=== PATIENT | female | born 1980 | race Caucasian/White ===

== ENCOUNTER 2021-01-01 04:16 | Emergency (ER) | payer SELFPAY ==
[2021-01-01 04:31] VITALS: BP 156/89; PULSE 70; RESP 16; TEMP 36.7; O2SAT 96; BMI 35.1
--- NOTE | 2021-01-01 04:38 | XRR_ITS ---
PROCEDURE INFORMATION: Exam: XR Right Forearm Exam date and time: 01/01/2021 4:38 AM Age: 40 years old Clinical indication: Lower or forearm; Right; Patient HX: C/O pain to distal forearm. Mild swelling. Patient states she is unsure if she injured it or not. ; Additional info: Injury TECHNIQUE: Imaging protocol: XR Right forearm. Views: 2 views. COMPARISON: No relevant prior studies available. FINDINGS: Bones/joints: No acute fracture or dislocation. Soft tissues: Normal. XR/XR forearm RT 2V [id number] IMPRESSION: No acute fracture or dislocation.
--- NOTE | 2021-01-01 04:43 | W.ED.EXTPRO ---
HPI - Extremity Problem General: Chief complaint: Extremity Injury, Upper Stated complaint: Injury Rt arm Time Seen by Provider: 01/01/21 04:17 Source: patient Mode of arrival: ambulatory Limitations: no limitations History of Present Illness: HPI Narrative: 40-year-old female states she been having some right wrist pain over the last day. States she has tenderness and swelling over the right wrist and distal forearm. She states that she is unsure if she actually injured it but does have some possible deformity. She states that pain is improved with rest and worse with palpation. Associated symptoms: Deny chest pain, fever(s) or rash Review of Systems Const: Denies: fever(s), chills, body aches or change in appetite Eyes: Denies: blurry vision or eye discomfort ENMT: Denies: throat pain or dental pain Card: Denies: chest pain Resp: Denies: dyspnea GI: Denies: abdominal pain, nausea, vomiting or diarrhea : Denies: dysuria Musc: Reports: extremity pain Skin/Breast: Denies: rash Neuro: Denies: headache(s) Psych: Denies: depression Timmy/Lymph: Denies: easy bruising All/Imm: Denies: urticaria Physical Exam Const: COMMON NORMALS: no acute distress, patient oriented x3 and healthy appearing HENMT: COMMON NORMALS: normocephalic and atraumatic HEAD & SCALP: normocephalic and atraumatic Eye: COMMON NORMALS: Equal, round and reactive pupils present and EOMs intact bilaterally PUPIL: Yes Equal, round and reactive pupils present Neck/C-Spine: COMMON NORMALS: full ROM and supple Chest: COMMONS NORMALS: normal inspection of the chest and normal palpation of entire chest wall Resp: COMMON NORMALS: normal respiratory effort, No retractions, No use of accessory muscles and clear to auscultation bilaterally AUSCULTATION: clear to auscultation bilaterally Cardio: COMMON NORMALS: regular rate, regular rhythm and No murmurs present (Cardio) RATE: regular rate RHYTHM: regular rhythm GI: COMMON NORMALS: Normal to inspection, nondistended, normoactive bowel sounds present, Soft to palpation, non-tender and no masses PALPATION: Yes Soft to palpation Extremity: COMMON NORMALS: full ROM NARRATIVE EXTREMITY EXAM: tenderness over right distal forearm Neuro: COMMON NORMALS: patient oriented x3, moves all extremities and no focal motor deficits Psych: COMMON NORMALS: mental status grossly normal, Normal thought process present and cooperative THOUGHT PROCESS: Normal thought process present Skin: COMMON NORMALS: no rashes or lesions noted and no wounds GENERAL SKIN EXAM: no rashes or lesions noted Course Vital Signs: Vital signs: Vital Signs Temperature 98.1 F 01/01/21 04:31 Pulse Rate 70 01/01/21 04:31 Respiratory Rate 16 01/01/21 04:31 Blood Pressure 156/89 01/01/21 04:31 Pulse Oximetry 96 01/01/21 04:31 MDM - Extremity (Nontraumatic) MDM Narrative: Medical decision making narrative: Patient presents here with pain over her right forearm. She does have some slight swelling no signs of abscess or cellulitis. She has no signs of septic arthritis. Patient's x-ray here shows no fracture. She is to ice it along with Erik wrap. She is stable for discharge and is to follow-up PCP and return if worsening. Imaging Data^: xr forearm rt: Attestation: I personally reviewed and interpreted this imaging study as follows: My impression: no acute abnormality Discharge Plan Discharge Patient Disposition: Home Clinical Impression: Right wrist pain Condition: Stable Discharge Orders: Discharge ED (Routine); Ordered 01/01/21 Ordered By: Soumya Ma Discharge Diet: Advance as tolerated Discharge Activity: Resume usual activity Patient Instructions: Arthralgia (ED) Coding Level of Care Code ED Aircraft Structural Design Engineer for Portia Vera Exam Comprehensive
[2021-01-01 04:56] VITALS: BP 145/90; PULSE 69; RESP 15; O2SAT 99
[2021-01-01 05:05] VITALS: BP 145/90; PULSE 69; RESP 15; O2SAT 99
== END 2021-01-01 05:00 | disposition home or self-care (01) ==
PROVIDERS: Emergency Provider Emergency Medicine
DX: M25.531 Pain in right wrist (principal)
CPT/HCPCS: 73090; 99282

== ENCOUNTER 2021-11-25 14:17 | Inpatient (IN) | payer MEDICAID, SELFPAY ==
[2021-11-25 14:18] VITALS: BP 135/82; PULSE 102; RESP 18; TEMP 37.4; O2SAT 97; BMI 29.5
[2021-11-25 14:47] VITALS: BP 135/82; PULSE 102; RESP 18; TEMP 37.4; O2SAT 97
--- NOTE | 2021-11-25 14:54 | USCV_ITS ---
Lou Ponce Age: 41 Gender: F : 1980 Exam Date: 11/25/2021 15:08 Ordering Phys: Lydia Hand Technologist: QUINTIN [place]am [place] [facility] [place]ication: RLE PAIN, SWELLING, AND DISCOLORATION HISTORY: Lower extremity swelling. Lower extremity pain. Lower extremity edema. PROCEDURES: Venous duplex imaging was performed in only the right lower extremity. The following venous structures were evaluated: common femoral vein, profunda vein, proximal portion of the greater saphenous vein, superficial femoral vein, and the popliteal vein. In addition, the posterior tibial and peroneal trunk were evaluated. Serial compression, augmentation maneuvers, and spectral Doppler flow evaluation were performed. FINDINGS: Examination was technically limited due to body habitus. No evidence of DVT seen in any vessel visualized at this time. Edema seen in Right lower leg CONCLUSIONS No evidence of right lower extremity DVT. Zheng Iniguez MD (Electronically Signed) Final Date: 25 November 2021 16:25 S
--- NOTE | 2021-11-25 14:55 | ED_ITS ---
Documented by User: DENTON Kohler 11/25/21 16:39 HPI - Extremity Problem General: Chief complaint: Skin/Abscess/Foreign Body Stated complaint: LEG PAIN, VOMITING, CHILLS Time Seen by Provider: 11/25/21 14:34 Source: patient Mode of arrival: EMS Limitations: no limitations History of Present Illness: Patient is a 41-year-old female presents to ED today via EMS for evaluation of right lower leg redness, swelling, and pain. Patient herself is an extremely poor historian. During my examination she appears to be drowsy-tells me EMS gave her something for nausea that made her drowsy. Patient tells me that symptoms started yesterday. She does tell me she has a history of cellulitis to that leg. She does tell me she sustained some type of cut or laceration to the anterior aspect of her ankle but cannot tell me how or when. She does not complain of fevers or body aches. No chest pain, shortness of breath, difficulty breathing. MD Complaint: extremity pain and extremity swelling Onset (ago): day(s) (yesterday) Pain Consistency: constant Location: right and lower extremity Associated symptoms: Deny chest pain or fever(s) Review of Systems Const: Denies: fever(s), chills, body aches, fatigue or malaise Card: Denies: chest pain Resp: Denies: dyspnea GI: Denies: abdominal pain Musc: Reports: extremity pain and extremity swelling; Denies: neck pain or back pain Skin/Breast: Reports: other (redness/warmth to R LE) Neuro: Denies: headache(s), numbness in extremities, weakness in extremities or sensory changes FOR[facility]LY [facility], [facility] ED PFSH: Medical History Cellulitis Years back Smoking addiction Surgical History H/O: hysterectomy Family History Other No significant family history Social History Smoking and tobacco status: current some day smoker Alcohol intake: former Year of sobriety/quit date alcohol: 2021 Former alcohol use details: Reports no EtOH since September. Heavy prior to that Lives independently: Yes Household members: significant other Marital status: Physical Exam Const: COMMON NORMALS: no acute distress, average body habitus, patient oriented x3 and alert GENERAL APPEARANCE: cooperative ORIENTATION/CONSCIOUSNESS: Yes awake, Yes oriented to person, Yes oriented to place and Yes oriented to time OTHER: appears drowsy HENMT: COMMON NORMALS: normocephalic and atraumatic HEAD & SCALP: normal to inspection, normocephalic and atraumatic Resp: COMMON NORMALS: normal respiratory effort and clear to auscultation bilaterally AUSCULTATION: clear to auscultation bilaterally Cardio: COMMON NORMALS: regular rhythm RATE: tachycardic (mild) RHYTHM: regular rhythm Extremity: COMMON NORMALS: capillary refill normal GENERAL: Yes normal exam except as noted RIGHT LOWER EXTREMITY: Yes lower leg, Yes foot & digits and Yes foot & digits OTHER: pt has significant swelling to her R LE when compared to L; she has sharply demarcated erythema extending just distal to her knee all the way down extremity into ankle/foot; she has a small linear laceration to anterior R ankle that most likely is source of infection; NV intact; extremity is very warm to the touch Neuro: LAURA COMA SCALE: document GCS findings Sumner coma scale eye opening: Spontaneous Sumner coma scale verbal response: Orientated Laura coma scale motor response: Obey commands Sumner coma scale total score: 15 COMMON NORMALS: patient oriented x3, moves all extremities, no focal motor deficits and no sensory deficits noted SENSORIUM/ORIENTATION: Yes alert, Yes oriented to person, Yes oriented to place and Yes oriented to time Skin: NARRATIVE SKIN EXAM: see extremity assessment above Course Consultations: Consultation #1: Dr. Esquivel-admit to OBS Vital Signs: Vital signs: Vital Signs Temperature 98.6 F 11/27/21 11:56 Pulse Rate 93 11/27/21 11:56 Respiratory Rate 17 11/27/21 11:56 Blood Pressure 127/75 11/27/21 11:56 Pulse Oximetry 96 11/27/21 11:56 Oxygen Delivery Me thod 11/27/21 11:56 MDM - Extremity (Nontraumatic) Medical Decision Making Patient has significant swelling to her right lower leg with accompanying cellulitis. Symptoms are rapidly progressing as she states they first started yesterday but then later tells me she first noticed it today. I do somewhat question the accuracy of patient's history. She arrived mildly tachycardic at 102 with a low-grade fever of 99.3. These have resolved during repeat vital assessment. White count at this point is 12.3. She surprisingly has a normal lactate and normal inflammatory markers. Tox screen is negative. Patient states she has no follow-up outpatient and I worry regarding compliance if she were to go home. I think just given the rapid progression of symptoms she would benefit from hospitalization and IV antibiotics. Agree with Dr. Gonzalez who agrees. I spoke to Dr. Esquivel who will admit to obs. Lab Data : 11/27/21 04:49 11/27/21 04:49 Laboratory Results WBC 12.3 10^3/uL (4.0-10.0) H 11/25/21 14:01 RBC 4.26 10^6/uL (4.1-5.3) 11/25/21 14:01 Hgb 14.1 g/dL (11.5-15.3) 11/25/21 14:01 Hct 42.0 % (37.0-47.0) 11/25/21 14:01 MCV 98.6 fl (81-99) 11/25/21 14:01 MCH 33.1 pg (28.0-34.0) 11/25/21 14:01 MCHC 33.6 g/dL (30.0-36.0) 11/25/21 14:01 RDW 12.9 % (12.1-15.1) 11/25/21 14:01 Plt Count 261 10^3/cmm (130-400) 11/25/21 14:01 MPV 9.6 fL (7.4-10.4) 11/25/21 14:01 Neut % (Auto) 94.1 % 11/25/21 14:01 Lymph % (Auto) 1.9 % 11/25/21 14:01 Glades % (Auto) 3.2 % 11/25/21 14:01 Eos % (Auto) 0.1 % 11/25/21 14:01 Baso % (Auto) 0.2 % 11/25/21 14:01 Neut # (Auto) 11.62 10^3/uL (1.8-7.7) H 11/25/21 14:01 Lymph # (Auto) 0.2 10^3/uL (0.8-4.8) L 11/25/21 14:01 Glades # (Auto) 0.4 10^3/uL (0.2-0.9) 11/25/21 14:01 Eos # (Auto) 0.0 10^3/uL (0.0-0.8) 11/25/21 14:01 Baso # (Auto) 0.0 10^3/uL (0.0-0.1) 11/25/21 14:01 Nucleated RBC % (auto) 0 % 11/25/21 14:01 Nucleated RBCs # 0.0 /100WBC 11/25/21 14:01 ESR 6 mm/hr (0-15) 11/25/21 14:01 Sodium 139 mmol/L (136-145) 11/25/21 14:01 Potassium 4.0 mmol/L (3.5-5.1) 11/25/21 14:01 Chloride 104 mmol/L (98-107) 11/25/21 14:01 Carbon Dioxide 25 mmol/L (22-29) 11/25/21 14:01 Anion Gap 14.0 (5-19) 11/25/21 14:01 BUN 9 mg/dL (6-20) 11/25/21 14:01 Creatinine 0.7 mg/dL (0.5-0.9) 11/25/21 14:01 GFR Calculation 91.3 mL/min (90-130) 11/25/21 14:01 Glucose 132 mg/dL (65-115) H 11/25/21 14:01 Calculated Osmolality 289 mOsm/kg (285-295) 11/25/21 14:01 Lactic Acid 1.9 mmol/L (0.5-2.2) 11/25/21 14:08 Calcium 8.9 mg/dL (8.5-10.5) 11/25/21 14:01 Total Bilirubin 0.6 mg/dL (0.15-1.2) 11/25/21 14:01 AST 9 U/L (0-32) 11/25/21 14:01 ALT 12 U/L (0-33) 11/25/21 14:01 Alkaline Phosphatase 52 IU/L (35-105) 11/25/21 14:01 C-Reactive Protein 3.8 mg/L (0.0-4.9) 11/25/21 14:01 Total Protein 6.7 g/dL (6.6-8.7) 11/25/21 14:01 Albumin 3.9 g/dL (3.5-5.2) 11/25/21 14:01 Globulin 2.8 g/dL (1.3-4.6) 11/25/21 14:01 Urine Opiates Screen Negative ng/mL (Negative) 11/25/21 14:32 Ur Barbiturates Screen Negative ng/mL (Negative) 11/25/21 14:32 Ur Phencyclidine Scrn Negative ng/mL (Negative) 11/25/21 14:32 Ur Amphetamines Screen Negative ng/mL (Negative) 11/25/21 14:32 U Benzodiazepines Scrn Negative ng/mL (Negative) 11/25/21 14:32 Urine Cocaine Screen Negative ng/mL (Negative) 11/25/21 14:32 U Marijuana (THC) Screen Negative ng/mL (Negative) 11/25/21 14:32 Discharge Plan Discharge Patient Disposition: Placed in Observation Admit Provider: Gaurang Esquivel Clinical Impression: Cellulitis of right leg Coding Level of Care Code ED Analytics Developer for Chg Fwd Exam Detailed Documented by User: Ty Gonzalez MD 12/07/21 23:07 HPI - Extremity Problem General: Chief complaint: Skin/Abscess/Foreign Body Stated complaint: LEG PAIN, VOMITING, CHILLS Time Seen by Provider: 11/25/21 14:34 PFSH ED PFSH: Medical History Cellulitis Years back Smoking addiction Surgical History H/O: hysterectomy Family History Other No significant family history Social History Smoking and tobacco status: current some day smoker Alcohol intake: former Year of sobriety/quit date alcohol: 2022 Former alcohol use details: Reports no EtOH since September. Heavy prior to that Lives independently: Yes Household members: significant other Marital status: Physical Exam Neuro: LAURA COMA SCALE: document GCS findings Sumner coma scale total score: 15 Course Vital Signs: Vital signs: Vital Signs Temperature 98.6 F 11/27/21 11:56 Pulse Rate 93 11/27/21 11:56 Respiratory Rate 17 11/27/21 11:56 Blood Pressure 127/75 11/27/21 11:56 Pulse Oximetry 96 11/27/21 11:56 Oxygen Delivery Me thod 11/27/21 11:56 MDM - Extremity (Nontraumatic) Medical Decision Making Patient has significant swelling to her right lower leg with accompanying cellulitis. Symptoms are rapidly progressing as she states they first started yesterday but then later tells me she first noticed it today. I do somewhat question the accuracy of patient's history. She arrived mildly tachycardic at 102 with a low-grade fever of 99.3. These have resolved during repeat vital assessment. White count at this point is 12.3. She surprisingly has a normal lactate and normal inflammatory markers. Tox screen is negative. Patient states she has no follow-up outpatient and I worry regarding compliance if she were to go home. I think just given the rapid progression of symptoms she would benefit from hospitalization and IV antibiotics. Agree with Dr. Gonzalez who agrees. I spoke to Dr. Esquivel who will admit to obs. I discussed this case with DENTON Kohler. I personally saw and evaluated the patient. I reperformed auguste portions of E/M. I reviewed documentation, labs, imaging. Ty Gonzalez MD Emergency Medicine Lab Data : 11/27/21 04:49 11/27/21 04:49 Laboratory Results WBC 12.3 10^3/uL (4.0-10.0) H 11/25/21 14:01 RBC 4.26 10^6/uL (4.1-5.3) 11/25/21 14:01 Hgb 14.1 g/dL (11.5-15.3) 11/25/21 14:01 Hct 42.0 % (37.0-47.0) 11/25/21 14:01 MCV 98.6 fl (81-99) 11/25/21 14:01 MCH 33.1 pg (28.0-34.0) 11/25/21 14:01 MCHC 33.6 g/dL (30.0-36.0) 11/25/21 14:01 RDW 12.9 % (12.1-15.1) 11/25/21 14:01 Plt Count 261 10^3/cmm (130-400) 11/25/21 14:01 MPV 9.6 fL (7.4-10.4) 11/25/21 14:01 Neut % (Auto) 94.1 % 11/25/21 14:01 Lymph % (Auto) 1.9 % 11/25/21 14:01 Glades % (Auto) 3.2 % 11/25/21 14:01 Eos % (Auto) 0.1 % 11/25/21 14:01 Baso % (Auto) 0.2 % 11/25/21 14:01 Neut # (Auto) 11.62 10^3/uL (1.8-7.7) H 11/25/21 14:01 Lymph # (Auto) 0.2 10^3/uL (0.8-4.8) L 11/25/21 14:01 Glades # (Auto) 0.4 10^3/uL (0.2-0.9) 11/25/21 14:01 Eos # (Auto) 0.0 10^3/uL (0.0-0.8) 11/25/21 14:01 Baso # (Auto) 0.0 10^3/uL (0.0-0.1) 11/25/21 14:01 Nucleated RBC % (auto) 0 % 11/25/21 14:01 Nucleated RBCs # 0.0 /100WBC 11/25/21 14:01 ESR 6 mm/hr (0-15) 11/25/21 14:01 Sodium 139 mmol/L (136-145) 11/25/21 14:01 Potassium 4.0 mmol/L (3.5-5.1) 11/25/21 14:01 Chloride 104 mmol/L (98-107) 11/25/21 14:01 Carbon Dioxide 25 mmol/L (22-29) 11/25/21 14:01 Anion Gap 14.0 (5-19) 11/25/21 14:01 BUN 9 mg/dL (6-20) 11/25/21 14:01 Creatinine 0.7 mg/dL (0.5-0.9) 11/25/21 14:01 GFR Calculation 91.3 mL/min (90-130) 11/25/21 14:01 Glucose 132 mg/dL (65-115) H 11/25/21 14:01 Calculated Osmolality 289 mOsm/kg (285-295) 11/25/21 14:01 Lactic Acid 1.9 mmol/L (0.5-2.2) 11/25/21 14:08 Calcium 8.9 mg/dL (8.5-10.5) 11/25/21 14:01 Total Bilirubin 0.6 mg/dL (0.15-1.2) 11/25/21 14:01 AST 9 U/L (0-32) 11/25/21 14:01 ALT 12 U/L (0-33) 11/25/21 14:01 Alkaline Phosphatase 52 IU/L (35-105) 11/25/21 14:01 C-Reactive Protein 3.8 mg/L (0.0-4.9) 11/25/21 14:01 Total Protein 6.7 g/dL (6.6-8.7) 11/25/21 14:01 Albumin 3.9 g/dL (3.5-5.2) 11/25/21 14:01 Globulin 2.8 g/dL (1.3-4.6) 11/25/21 14:01 Urine Opiates Screen Negative ng/mL (Negative) 11/25/21 14:32 Ur Barbiturates Screen Negative ng/mL (Negative) 11/25/21 14:32 Ur Phencyclidine Scrn Negative ng/mL (Negative) 11/25/21 14:32 Ur Amphetamines Screen Negative ng/mL (Negative) 11/25/21 14:32 U Benzodiazepines Scrn Negative ng/mL (Negative) 11/25/21 14:32 Urine Cocaine Screen Negative ng/mL (Negative) 11/25/21 14:32 U Marijuana (THC) Screen Negative ng/mL (Negative) 11/25/21 14:32 Discharge Plan Discharge Patient Disposition: Placed in Observation Admit Provider: Halytskyy,Gaurang Clinical Impression: Cellulitis of right leg Coding Level of Care Code ED Analytics Developer for Chg Fwd Exam Detailed
[2021-11-25 15:04] VITALS: BP 135/82; PULSE 102; RESP 18; TEMP 37.4; O2SAT 97
[2021-11-25 15:30] LABS: Erythrocyte Sedimentation Rate 6 mm/hr (0-15)
[2021-11-25 15:33] LABS: Basophils % 0.2 %; Eosinophils % 0.1 %; Hemoglobin 14.1 g/dL (11.5-15.3); Lymphocytes # 0.2 10^3/uL (0.8-4.8); Lymphocytes % 1.9 %; Mean Corpuscular HGB Conc 33.6 g/dL (30.0-36.0); Mean Corpuscular Hemoglobin 33.1 pg (28.0-34.0); Mean Corpuscular Volume 98.6 fl (81-99); Mean Platelet Volume 9.6 fL (7.4-10.4); Monocytes # 0.4 10^3/uL (0.2-0.9); Monocytes % 3.2 %; Neutrophils # 11.62 10^3/uL (1.8-7.7); Neutrophils % 94.1 %; Nucleated Red Blood Cells % 0 %; Platelet Count 261 10^3/cmm (130-400); Red Blood Count 4.26 10^6/uL (4.1-5.3); Red Cell Distribution Width 12.9 % (12.1-15.1); White Blood Count 12.3 10^3/uL (4.0-10.0)
[2021-11-25 15:45] LABS: Lactic Sepsis W/Reflex 1.9 mmol/L (0.5-2.2)
[2021-11-25] MEDS: vancomycin 1,000 MG in sodium chloride 0.9% 250 ML 250 MG IV (15:46)
[2021-11-25 15:49] LABS: Alanine Aminotransferase 12 U/L (0-33); Albumin Level 3.9 g/dL (3.5-5.2); Alkaline Phosphatase 52 IU/L (35-105); Aspartate Amino Transferase 9 U/L (0-32); Blood Urea Nitrogen 9 mg/dL (6-20); C Reactive Protein 3.8 mg/L (0.0-4.9); Calcium 8.9 mg/dL (8.5-10.5); Carbon Dioxide 25 mmol/L (22-29); Chloride 104 mmol/L (98-107); Globulin 2.8 g/dL (1.3-4.6); Glomerular Filtration Rate 91.3 mL/min (90-130); Glucose 132 mg/dL (65-115); Osmolality Calculated 289 mOsm/kg (285-295); Sodium 139 mmol/L (136-145); Total Bilirubin 0.6 mg/dL (0.15-1.2); Total Protein 6.7 g/dL (6.6-8.7)
[2021-11-25 16:23] VITALS: BP 113/77; PULSE 88; RESP 16; TEMP 36.9; O2SAT 95
[2021-11-25 16:27] LABS: Amphetamines Screen Urine Negative (Negative); Barbiturates Screen Urine Negative (Negative); Benzodiazepines Screen Urine Negative (Negative); Cocaine Screen Urine Negative (Negative); Opiate Screen Urine Negative (Negative); PCP Screen Urine Negative (Negative); THC Screen Urine Negative (Negative)
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
[2021-11-25] MEDS: clindamycin 600 MG/50 ML PREMIX 100 MG IV (19:49)
[2021-11-25 19:56] VITALS: BP 161/89; PULSE 96; RESP 16; TEMP 36.9; O2SAT 100
[2021-11-25 21:39] VITALS: BMI 29.5
--- NOTE | 2021-11-25 21:58 | PC.PHAR ---
Vancomycin dosage is continued at 1000mg IVPB every 8 hours to produce a predicted trough level of14.66 (population based pharmacokinetic analysis). A trough level has been ordered from the lab to be obtained before the fourth dose to confirm and adjust if needed.
[2021-11-25] MEDS: heparin 5,000 unit/mL INJ 1 mL 5000 UNIT SUBCUT (22:33)
[2021-11-25] MEDS: pantoprazole 40 mg SDV IVP (22:33)
[2021-11-25] MEDS: lactated ringers 1,000 ML 100 ML IV (22:38)
[2021-11-26] VITALS (8 sets, daily range): BP systolic 102–118; BP diastolic 63–76; PULSE 88–108; RESP 14–19; TEMP 37.2–39.5; O2SAT 95–99
[2021-11-26] MEDS: vancomycin 1,000 MG in sodium chloride 0.9% 250 ML 250 MG IV ×3 (00:27→16:54)
[2021-11-26] MEDS: ondansetron 2 mg/ML SDV 2 mL 4 MG IVP (00:27)
[2021-11-26] MEDS: acetaminophen 325 mg Tablet 650 MG PO (01:14)
[2021-11-26 02:52] LABS: Basophils % 0.1 %; Hematocrit 36.3 % (37.0-47.0); Lymphocytes # 0.2 10^3/uL (0.8-4.8); Lymphocytes % 1.4 %; Mean Corpuscular HGB Conc 33.1 g/dL (30.0-36.0); Mean Corpuscular Hemoglobin 32.5 pg (28.0-34.0); Mean Corpuscular Volume 98.4 fl (81-99); Mean Platelet Volume 9.6 fL (7.4-10.4); Monocytes # 0.3 10^3/uL (0.2-0.9); Monocytes % 1.8 %; Neutrophils # 14.15 10^3/uL (1.8-7.7); Neutrophils % 95.8 %; Nucleated Red Blood Cells % 0 %; Platelet Count 231 10^3/cmm (130-400); Red Blood Count 3.69 10^6/uL (4.1-5.3); White Blood Count 14.8 10^3/uL (4.0-10.0)
[2021-11-26 03:10] LABS: Estmated Average Glucose 94; Hemoglobin A1C 4.9 % (4.0-6.0)
[2021-11-26 03:14] LABS: Alanine Aminotransferase 11 U/L (0-33); Albumin Level 3.2 g/dL (3.5-5.2); Alkaline Phosphatase 37 IU/L (35-105); Anion Gap 13.3 (5-19); Aspartate Amino Transferase 7 U/L (0-32); Blood Urea Nitrogen 11 mg/dL (6-20); Calcium 8.9 mg/dL (8.5-10.5); Carbon Dioxide 22 mmol/L (22-29); Chloride 105 mmol/L (98-107); Globulin 2.6 g/dL (1.3-4.6); Glomerular Filtration Rate 91.3 mL/min (90-130); Glucose 119 mg/dL (65-115); Osmolality Calculated 283 mOsm/kg (285-295); Potassium 4.3 mmol/L (3.5-5.1); Sodium 136 mmol/L (136-145); Total Bilirubin 0.5 mg/dL (0.15-1.2); Total Protein 5.8 g/dL (6.6-8.7)
[2021-11-26] MEDS: clindamycin 600 MG/50 ML PREMIX 100 MG IV ×3 (03:22→19:51)
[2021-11-26] MEDS: ciprofloxacin 400 MG/200 ML PREMIX 200 MG IV ×2 (06:27→17:57)
--- NOTE | 2021-11-26 08:03 | P.CONIM_ITS ---
Providers/Reason For Consult Consulting Physician/Specialty*: Dr. Jasmeet Romero, DO/General surgery Reason for Consult*: Right lower extremity cellulitis Attending Physician: Gaurang Esquivel History of Present Illness History of Present Illness Lou Ponce is a 41 year old female who presented to the hospital pain, swelling and redness in her right leg and foot. She has had this happen before. She reports that she got really sick when she was 33 and has had lymphedema in her right leg ever since. Denies any fever or chills. The pain is constant and throbbing. Palpation makes the pain worse. Nothing makes the pain better. The pain does not radiate. Review of Systems General: Reports: 10 or more systems reviewed and unremarkable except in HPI and below Medications/Allergies Home Medications Medication Instructions Recorded Confirmed Last Taken Type No Known Home Medications 11/25/21 11/25/21 Unknown History Allergies Allergy/AdvReac Type Severity Reaction Status Date / Time adhesive Allergy ALGY-Rash Verified 11/25/21 16:55 morphine Allergy ADR-Confusi Verified 11/25/21 16:55 on oxycodone Allergy ADR-Dizzine Verified 11/25/21 16:55 ss Penicillins Allergy ALGY-Difficulty Verified 11/25/21 16:55 Breathing Current Medications Generic Name Dose Route Start Last Admin Trade Name Freq PRN Reason Stop Dose Admin Acetaminophen 650 mg 11/25/21 21:34 11/26/21 01:14 Acetaminophen 325 Mg Tablet PO 650 mg Q6H PRN Administration Mild/Mod Pain Or Temp >/= 101 Heparin Sodium (Porcine) 5,000 unit 11/25/21 21:34 11/26/21 06:30 Heparin 5,000 Unit/Ml Inj 1 Ml SUBCUT Not Given Q8H CHON Ciprofloxacin/Dextrose 400 mg in 200 mls @ 200 mls/hr 11/25/21 18:00 11/26/21 06:27 Cipro IV 200 mls/hr Q12H CHON Administration Protocol Clindamycin HCl/Dextrose 600 mg in 50 mls @ 100 mls/hr 11/25/21 18:00 11/26/21 05:06 Cleocin IV 11/26/21 10:29 Infused Q8H CHON Infusion Protocol Lactated Ringer's 1,000 mls @ 100 mls/hr 11/25/21 21:34 11/25/21 22:38 Lactated Ringers IV 100 mls/hr .Q10H CHON Administration Vancomycin HCl 1,000 mg/ 250 mls @ 250 mls/hr 11/26/21 00:00 11/26/21 07:55 Sodium Chloride IV 250 mls/hr Q8H CHON Administration Ondansetron HCl 4 mg 11/25/21 21:34 11/26/21 00:27 Ondansetron 2 Mg/Ml Sdv 2 Ml IVP 4 mg Q8H PRN Administration vomiting, or N/V if npo Pantoprazole Sodium 40 mg 11/25/21 21:34 11/25/21 22:33 Pantoprazole 40 Mg Sdv IVP 40 mg Q24H CHON Administration PFSH Acute PFSH: Medical History Cellulitis Years back Smoking addiction Surgical History H/O: hysterectomy Family History Other No significant family history Social History Smoking and tobacco status: current some day smoker Alcohol intake: former Year of sobriety/quit date alcohol: 2021 Former alcohol use details: Reports no EtOH since September. Heavy prior to that Lives independently: Yes Household members: significant other Marital status: Vitals/I&O/Wt Last Vital Signs Temp 100.2 F H 11/26/21 04:00 Pulse 93 11/26/21 04:00 Resp 15 11/26/21 04:00 BP 107/63 11/26/21 04:00 Pulse Ox 95 11/26/21 04:00 O2 Del Method 11/26/21 04:00 11/25/21 11/26/21 11/26/21 22:59 06:59 14:59 Intake Total 300 / 300 660 / 960 Balance 300 / 300 660 / 960 Weight last 48 hrs Weight 225 lb 3 oz Weight 200 lb Weight 200 lb Physical Exam Narrative: General : Patient is well developed , no acute distress, oriented x3 Head : Normal cephalic, a-traumatic. Ears : Pinnae and external canal are normal. Hearing is normal. Eyes : PERRLA, Sclera and injection are normal. No conjunctival discharge. Nose : Mucous membranes are without erythema. Throat : buccal mucosa is normal, gums are without significant recession or hypertrophy. Lungs : Equal chest rise bilaterally, no use of accessory muscles, trachea is midline. Cor : Rate and rhythm are normal. Abdomen : Soft, ND, NT, no g/r/m Extremities : Cellulitis and pitting edema of the right lower extremity. No evidence of abscess or drainable fluid collection Back : non-tender to palpation, no CVA tenderness. 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
--- NOTE | 2021-11-26 09:50 | PC.NURSE ---
Bedside report received from BUD Perera this morning.
--- NOTE | 2021-11-26 09:55 | PC.CHAP ---
Pastoral Care Encounter/Spiritual Assessment Type of Contact [] Declined audio visual director visit [] Patient/Family/Request visit [] Outpatient visit [] Follow-up visit [] Physician referral [] Code/Alert [x] Routine visit [] Staff referral [] Actively dying [] Patient sleeping [] Family support [] [] Out of room [] Palliative care [] [x] Receiving care in room [] Pre-surgical visit [] Trauma [] Long length of stay [] ICU visit [] Other: Relational/Emotional Strength [] Patient feels connected with others/family/visitors/staff [x] Distress [] Loneliness/isolation [] Abandonment Spirituality of Patient [x] Person of Isabelle [] Attends [employer] of their Isabelle [x] Believes in Prayer [] Reads Bible or Pentecostal materials [] There are Spiritual issues to be addressed Dental Patient Coordinator Interventions [x] Prayer [x] Active listening [x] Non-anxious presence [x] Spiritual/emotional support [] Crisis/trauma care [x] Spiritual counseling [] Bereavement support [] Provided bereavement packet [] Provided Bible/devotional materials [] Provided toy/stuffed animal, coloring book to patient or family member [] Provided Communion [] Anointing/[place] [] Salvation [x] Completed spiritual assessment [] Other: Impact on Illness or Injury [] Angry [] Fearful [x] Anxious [] Often cries [] Exhaustion [] Unable to work [] Unable to attend restoration [] Unable to walk/stand [] Unable to read [] Unable to drive [] Unable to eat/drink [] Unable to sleep [] Unable to be with family [] Patient intubated [] Other: Summary vaticaltess some pain waiting on doctor tests doesn't know Time spent with patient 10 mins
[2021-11-26] MEDS: lactated ringers 1,000 ML 100 ML IV (11:16)
[2021-11-26] MEDS: heparin 5,000 unit/mL INJ 1 mL 5000 UNIT SUBCUT ×2 (14:34→22:03)
--- NOTE | 2021-11-26 19:48 | P.PN_ITS ---
Subjective Subjective: She feels today that she is improving. Feels a little bit better. Vitals/I&O/Wt Last Vital Signs Temp 100.1 F H 11/26/21 16:00 Pulse 88 11/26/21 16:00 Resp 18 11/26/21 16:00 BP 102/65 11/26/21 16:00 Pulse Ox 96 11/26/21 16:00 O2 Del Method 11/26/21 16:00 11/26/21 11/26/21 11/26/21 06:59 14:59 22:59 Intake Total 660 / 960 1740 / 1740 250 / 1989 Balance 660 / 960 1740 / 1740 250 / 1989 Weight last 48 hrs Weight 102.143 kg Weight 90.718 kg Weight 90.718 kg Physical Exam Const: COMMON NORMALS: patient oriented x3 and alert GENERAL APPEARANCE: cooperative and disheveled NUTRITIONAL APPEARANCE: obese ORIENTATION/CONSCIOUSNESS: Yes awake OTHER: Sluggish responses. HENMT: COMMON NORMALS: oropharynx normal Neck/C-Spine: COMMON NORMALS: no JVD Resp: COMMON NORMALS: normal respiratory effort and clear to auscultation bilaterally AUSCULTATION: clear to auscultation bilaterally Cardio: COMMON NORMALS: no JVD, regular rhythm, S1 normal heart sound present, S2 normal heart sound present and No murmurs present (Cardio) RHYTHM: regular rhythm HEART SOUNDS: S1 normal heart sound present and S2 normal heart sound present GI: COMMON NORMALS: Normal to inspection, nondistended, normoactive bowel sounds present, Soft to palpation and non-tender PALPATION: Yes Soft to palpation Extremity: COMMON NORMALS: no joint enlargement and no pedal edema Neuro: COMMON NORMALS: patient oriented x3 and moves all extremities SENSORIUM/ORIENTATION: Yes alert Skin: COMMON NORMALS: no rashes or lesions noted GENERAL SKIN EXAM: no rashes or lesions noted RASHES: rashes noted OTHER: Improving, fainter large area of rash right lower extremity extending from right foot, up to below the knee. Horizontal fissure, small amount of serous drainage anterolateral lower right leg anterior/superior to the right ankle. Data : 11/26/21 02:32 11/26/21 02:32 Micro: Microbiology 11/25/21 14:08 Blood Culture - Preliminary Blood NEGATIVE TO DATE 11/25/21 14:01 Blood Culture - Preliminary Blood NEGATIVE TO DATE 11/25/21 19:37 Gram Stain - Final Leg - #1 A&P Assessment and plan (1) Cellulitis of right leg: Still low-grade fever, but not high-grade fever anymore, leukocytosis persist. Subjectively feels somewhat better. There is some improvement in cellulitis with fainter erythema, without enlargement of the area. Wound culture had been collected, follow-up. Follow-up blood cultures. Continue empiric antibiotics with vancomycin, ciprofloxacin and clindamycin. Surgery assessment appreciated. Duplex right lower extremity negative for DVT. Status: Acute Plan Smoking addiction: Encourage cessation Hyperglycemia: Glucose 132, without history of diabetes. May be stress or infection related. A1c 4.9. Attestations Medical Necessity Statement*: Continue admission for assessment of management of sepsis, cellulitis. 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
[2021-11-26] MEDS: pantoprazole 40 mg SDV IVP (21:19)
[2021-11-26 23:01] LABS: Vancomycin Trough 8.1 ug/mL (10-15)
--- NOTE | 2021-11-26 23:12 | PC.PHAR ---
Vancomycin trough on dosage of 1000mg IVPB every 8 hours is 8.1. Dosage is increased to 1250mg IVPB every 8 hours with another trough to be obtained before the fourth 1250mg dose to determine if further dosage adjustment is needed.
[2021-11-26] MEDS: vancomycin 1,250 MG/250 ML PIGGYBACK 250 MG IV (23:57)
[2021-11-27] MEDS: lactated ringers 1,000 ML 100 ML IV ×2 (00:04→11:23)
[2021-11-27] MEDS: clindamycin 600 MG/50 ML PREMIX 100 MG IV ×2 (03:48→11:23)
[2021-11-27 04:00] VITALS: BP 110/71; PULSE 102; RESP 19; TEMP 37.4; O2SAT 97
[2021-11-27 04:59] LABS: Basophils % 0.2 %; Eosinophils # 0.1 10^3/uL (0.0-0.8); Eosinophils % 0.8 %; Hematocrit 34.5 % (37.0-47.0); Hemoglobin 11.4 g/dL (11.5-15.3); Lymphocytes # 0.4 10^3/uL (0.8-4.8); Lymphocytes % 3.7 %; Mean Corpuscular Hemoglobin 32.7 pg (28.0-34.0); Mean Corpuscular Volume 98.9 fl (81-99); Mean Platelet Volume 9.5 fL (7.4-10.4); Monocytes # 0.2 10^3/uL (0.2-0.9); Monocytes % 1.9 %; Neutrophils # 9.04 10^3/uL (1.8-7.7); Nucleated Red Blood Cells % 0 %; Platelet Count 186 10^3/cmm (130-400); Red Blood Count 3.49 10^6/uL (4.1-5.3); Red Cell Distribution Width 13.2 % (12.1-15.1); White Blood Count 9.7 10^3/uL (4.0-10.0)
[2021-11-27 05:28] LABS: Alanine Aminotransferase 27 U/L (0-33); Albumin Level 3.1 g/dL (3.5-5.2); Alkaline Phosphatase 58 IU/L (35-105); Anion Gap 12.8 (5-19); Aspartate Amino Transferase 12 U/L (0-32); Blood Urea Nitrogen 9 mg/dL (6-20); Calcium 8.4 mg/dL (8.5-10.5); Carbon Dioxide 24 mmol/L (22-29); Chloride 105 mmol/L (98-107); Globulin 2.6 g/dL (1.3-4.6); Glomerular Filtration Rate 91.3 mL/min (90-130); Glucose 98 mg/dL (65-115); Osmolality Calculated 285 mOsm/kg (285-295); Potassium 3.8 mmol/L (3.5-5.1); Sodium 138 mmol/L (136-145); Total Bilirubin 0.5 mg/dL (0.15-1.2); Total Protein 5.7 g/dL (6.6-8.7)
[2021-11-27 06:00] VITALS: PULSE 89
[2021-11-27] MEDS: heparin 5,000 unit/mL INJ 1 mL 5000 UNIT SUBCUT (06:28)
[2021-11-27] MEDS: ciprofloxacin 400 MG/200 ML PREMIX 200 MG IV (06:29)
[2021-11-27 07:43] VITALS: BP 123/75; PULSE 92; RESP 18; TEMP 37.2; O2SAT 97
[2021-11-27] MEDS: vancomycin 1,250 MG/250 ML PIGGYBACK 250 MG IV (07:56)
--- NOTE | 2021-11-27 11:18 | P.DS_ITS ---
Discharge Providers Date of Admission: 11/25/21 18:21 Date of Discharge: November 27, 2021 Attending Provider at Admission: Gaurang Esquivel Attending Provider at Discharge: Gaurang Esquivel Diagnoses at Discharge Discharge Diagnosis (1) Cellulitis of right leg: Status: Acute Reason for Visit Reason for Visit: LEG PAIN, VOMITING, CHILLS Hospital Course Hospital Course 41-year-old lady with history of lymphedema of right lower extremity, history of prior cellulitis, was admitted to the hospital due to erythema, warmth, swelling, pain of right lower extremity. Venous duplex was negative for DVT. He was noted to have findings of sepsis on presentation due to extensive cellulitis of right lower extremity, likely with source of entry through a small horizontal skin fissure of anterolateral right leg above and anteriorly to the right ankle. She was not found to need any surgical intervention on assessment by surgery. She was treated with ciprofloxacin and vancomycin while in the hospital. Due to hyperglycemia A1c was checked, but was 4.9. Her sepsis is resolved, cellulitis has been improving, she is feeling better. Wound culture showing gram-positive cocci, final cultures pending. She will complete antibiotic course for now with clindamycin. Physical Exam Const: COMMON NORMALS: patient oriented x3 and alert GENERAL APPEARANCE: cooperative and disheveled NUTRITIONAL APPEARANCE: obese ORIENTATION/CONSCIOUSNESS: Yes awake OTHER: Sluggish responses. HENMT: COMMON NORMALS: oropharynx normal Neck/C-Spine: COMMON NORMALS: no JVD Resp: COMMON NORMALS: normal respiratory effort and clear to auscultation bilaterally AUSCULTATION: clear to auscultation bilaterally Cardio: COMMON NORMALS: no JVD, regular rhythm, S1 normal heart sound present, S2 normal heart sound present and No murmurs present (Cardio) RHYTHM: regular rhythm HEART SOUNDS: S1 normal heart sound present and S2 normal heart sound present GI: COMMON NORMALS: Normal to inspection, nondistended, normoactive bowel sounds present, Soft to palpation and non-tender PALPATION: Yes Soft to palpation Extremity: COMMON NORMALS: no joint enlargement and no pedal edema Neuro: COMMON NORMALS: patient oriented x3 and moves all extremities SENSORIUM/ORIENTATION: Yes alert Skin: COMMON NORMALS: no rashes or lesions noted GENERAL SKIN EXAM: no rashes or lesions noted RASHES: rashes noted OTHER: Improving, fainter large area of rash right lower extremity extending from right foot, up to below the knee. Horizontal fissure, no drainage anterolateral lower right leg anterior/superior to the right ankle. Discharge Data Studies Completed and Pending Completed Studies During Hospitalization Category Date Time Status US venous duplex lower extremity RT [CV venous duplex Ultrasound 11/25/21 14:54 [place] [id number]] Urgent Pending at discharge Category Date Time Status Blood Culture Stat Lab 11/25/21 14:01 Results Complete Blood Count w/Auto AM LABS Lab 11/28/21 04:00 Ordered Comprehensive Metabolic Panel AM LABS Lab 11/28/21 04:00 Ordered Vancomycin Trough Timed Lab 11/27/21 23:00 Ordered Wound Culture and Gram Stain Routine Lab 11/25/21 19:37 Results Laboratory Results WBC 9.7 10^3/uL (4.0-10.0) 11/27/21 04:49 RBC 3.49 10^6/uL (4.1-5.3) L 11/27/21 04:49 Hgb 11.4 g/dL (11.5-15.3) L 11/27/21 04:49 Hct 34.5 % (37.0-47.0) L 11/27/21 04:49 MCV 98.9 fl (81-99) 11/27/21 04:49 MCH 32.7 pg (28.0-34.0) 11/27/21 04:49 MCHC 33.0 g/dL (30.0-36.0) 11/27/21 04:49 RDW 13.2 % (12.1-15.1) 11/27/21 04:49 Plt Count 186 10^3/cmm (130-400) 11/27/21 04:49 MPV 9.5 fL (7.4-10.4) 11/27/21 04:49 Neut % (Auto) 93.0 % 11/27/21 04:49 Lymph % (Auto) 3.7 % 11/27/21 04:49 [place] % (Auto) 1.9 % 11/27/21 04:49 Eos % (Auto) 0.8 % 11/27/21 04:49 Baso % (Auto) 0.2 % 11/27/21 04:49 Neut # (Auto) 9.04 10^3/uL (1.8-7.7) H 11/27/21 04:49 Lymph # (Auto) 0.4 10^3/uL (0.8-4.8) L 11/27/21 04:49 [place] # (Auto) 0.2 10^3/uL (0.2-0.9) 11/27/21 04:49 Eos # (Auto) 0.1 10^3/uL (0.0-0.8) 11/27/21 04:49 Baso # (Auto) 0.0 10^3/uL (0.0-0.1) 11/27/21 04:49 Nucleated RBC % (auto) 0 % 11/27/21 04:49 Nucleated RBCs # 0.0 /100WBC 11/27/21 04:49 ESR 6 mm/hr (0-15) 11/25/21 14:01 Sodium 138 mmol/L (136-145) 11/27/21 04:49 Potassium 3.8 mmol/L (3.5-5.1) 11/27/21 04:49 Chloride 105 mmol/L (98-107) 11/27/21 04:49 Carbon Dioxide 24 mmol/L (22-29) 11/27/21 04:49 Anion Gap 12.8 (5-19) 11/27/21 04:49 BUN 9 mg/dL (6-20) 11/27/21 04:49 Creatinine 0.7 mg/dL (0.5-0.9) 11/27/21 04:49 GFR Calculation 91.3 mL/min (90-130) 11/27/21 04:49 Glucose 98 mg/dL (65-115) 11/27/21 04:49 Estimat Average Glucose 94 11/26/21 02:32 Hemoglobin A1c 4.9 % (4.0-6.0) 11/26/21 02:32 Calculated Osmolality 285 mOsm/kg (285-295) 11/27/21 04:49 Lactic Acid 1.9 mmol/L (0.5-2.2) 11/25/21 14:08 Calcium 8.4 mg/dL (8.5-10.5) L 11/27/21 04:49 Total Bilirubin 0.5 mg/dL (0.15-1.2) 11/27/21 04:49 AST 12 U/L (0-32) 11/27/21 04:49 ALT 27 U/L (0-33) 11/27/21 04:49 Alkaline Phosphatase 58 IU/L (35-105) 11/27/21 04:49 C-Reactive Protein 3.8 mg/L (0.0-4.9) 11/25/21 14:01 Total Protein 5.7 g/dL (6.6-8.7) L 11/27/21 04:49 Albumin 3.1 g/dL (3.5-5.2) L 11/27/21 04:49 Globulin 2.6 g/dL (1.3-4.6) 11/27/21 04:49 Vancomycin Trough 8.1 ug/mL (10-15) L 11/26/21 22:33 Urine Opiates Screen Negative ng/mL (Negative) 11/25/21 14:32 Ur Barbiturates Screen Negative ng/mL (Negative) 11/25/21 14:32 Ur Phencyclidine Scrn Negative ng/mL (Negative) 11/25/21 14:32 Ur Amphetamines Screen Negative ng/mL (Negative) 11/25/21 14:32 U Benzodiazepines Scrn Negative ng/mL (Negative) 11/25/21 14:32 Urine Cocaine Screen Negative ng/mL (Negative) 11/25/21 14:32 U Marijuana (THC) Screen Negative ng/mL (Negative) 11/25/21 14:32 Vitals Last Vital Signs Temp 98.9 F 11/27/21 07:43 Pulse 92 11/27/21 07:43 Resp 18 11/27/21 07:43 BP 123/75 11/27/21 07:43 Pulse Ox 97 11/27/21 07:43 O2 Del Method 11/27/21 07:43 Discharge Plan Discharge Patient Disposition: Home Condition: Stable Prescriptions: New clindamycin HCl [Cleocin HCl] 300 mg capsule 300 mg PO Q6H 7 Days Qty: 28 0RF No Action No Known Home Medications Discharge Orders: Discharge Order (Routine); Ordered 11/27/21 Ordered By: Gaurang Esquivel Referrals: Robe Smith DO [Referring] - 4-7 days (Patient will need an appointment to set up New PCP and hospital followup. Appointment has to be made on day of Discharge. ) Patient Instructions: How to Stop Smoking (GEN), Cellulitis (GEN), Cigarette Smoking and Your Health (GEN), Lymphedema (GEN) Activity Restrictions/Additional Instructions: Please complete antibiotic course for cellulitis. Follow-up with your primary c are for reassessment of improvement of infection. Please discuss with your primary doctor once you recover from cellulitis also regarding treatment options to keep down lymphedema and assessment for why you have developed the lymphedema. Please stop smoking. Discharge Attestations Time Spent in Discharge Care*: greater than 30 min Quality Metrics Clinical Quality Measures [ No reported AMI, CVA or VTE this stay] Coding Level of Care Code Acute Chg [facility] note Diagnoses Cellulitis of right leg L03.115
[2021-11-27 11:56] VITALS: BP 127/75; PULSE 93; RESP 17; TEMP 37; O2SAT 96
== END 2021-11-27 14:23 | disposition home or self-care (01) | DRG 603 ==
LOC: ER 16:39 → MEDSURG 11-26 09:56
PROVIDERS: Admitting Provider Internal Medicine; Emergency Provider Physician Assistant; Visit Provider Internal Medicine
DX: L03.115 Cellulitis of right lower limb (principal); R73.9 Hyperglycemia, unspecified; F17.200 Nicotine dependence, unspecified, uncomplicated
CPT/HCPCS: 36415; 80053; 80202; 80306; 83036; 83605; 85025; 85651; 86140; 87040; 87070; 87075; 87077; 87186; 87205; 93971; 96365; 96372; 99285; C9113; J0744; J1644; J2405; J3370; J3490; J7050

== ENCOUNTER 2022-02-23 15:49 | Observation (INO) | payer MEDICAID, SELFPAY ==
[2022-02-23] VITALS (27 sets, daily range): BP systolic 115–140; BP diastolic 60–82; PULSE 100–118; RESP 2–28; TEMP 38.1; O2SAT 95–100; BMI 32.5
--- NOTE | 2022-02-23 16:12 | ED_ITS ---
HPI - Extremity Problem General: Chief complaint: Extremity Problem,Nontraumatic Stated complaint: pitting edema, vomiting Time Seen by Provider: 02/23/22 15:53 Source: patient Mode of arrival: EMS Limitations: no limitations History of Present Illness: This patient comes to our emergency department via EMS. She states that she has noted a crack in the skin of her right foot which she attempted to clean last night and then progressively became more ill with body aches chills fever and nausea with vomiting. She has a history of chronic lymphedema since age 30. She has had episodes of cellulitis in his leg previously. She denies other sources of fever such as cough, sore throat dysuria etc. MD Complaint: extremity swelling Associated symptoms: Reports fever(s) and rash; Deny chest pain Review of Systems Const: Reports: fever(s), chills and body aches Eyes: Denies: change in vision ENMT: Denies: throat pain, odynophagia or nasal discharge Card: Denies: chest pain, palpitations, irregular heart rhythm or edema Resp: Denies: dyspnea, productive cough or non-productive cough GI: Reports: nausea and vomiting; Denies: abdominal pain or diarrhea : Denies: flank pain, difficulty voiding, dysuria or urinary frequency Musc: Denies: neck pain, back pain, extremity pain or extremity swelling Skin/Breast: Reports: rash, erythema and changes in skin color Neuro: Denies: headache(s), numbness in extremities or weakness in extremities Endo: Denies: polyuria or polydipsia PFSH ED PFSH: Medical History Cellulitis Years back Smoking addiction Surgical History H/O: hysterectomy Family History Other No significant family history Social History Smoking and tobacco status: current some day smoker Alcohol intake: former Year of sobriety/quit date alcohol: 2021 Former alcohol use details: Reports no EtOH since September. Heavy prior to that Lives independently: Yes Household members: significant other Marital status: Physical Exam Narrative: EXAM NARRATIVE: He is alert appears to be in no acute distress makes good eye contact speech goal-directed. Const: COMMON NORMALS: no acute distress, average body habitus and patient oriented x3 GENERAL APPEARANCE: cooperative HENMT: COMMON NORMALS: normocephalic, Normal nasal mucous membranes and turbinates present, moist oral mucous membranes and oropharynx normal HEAD & SCALP: normocephalic NOSE: Normal nasal mucous membranes and turbinates present Eye: COMMON NORMALS: Equal, round and reactive pupils present, EOMs intact bilaterally and conjunctivae normal CONJUNCTIVA: Yes conjunctivae normal PUPIL: Yes Equal, round and reactive pupils present Neck/C-Spine: COMMON NORMALS: full ROM, no lymphadenopathy and supple Lymph: LYMPHATIC: lymphedema (Right lower leg) Chest: COMMONS NORMALS: normal inspection of the chest Resp: COMMON NORMALS: normal respiratory effort, No retractions, No use of accessory muscles and clear to auscultation bilaterally EFFORT & INSPECTION: Yes able to speak in complete sentences AUSCULTATION: clear to auscultation bilaterally Cardio: COMMON NORMALS: regular rate, regular rhythm and Peripheral pulses 2+ throughout RATE: regular rate and tachycardic RHYTHM: regular rhythm HEART SOUNDS: Murmur heart sound present (3/6 left sternal border systolic) PERIPHERAL PULSES: Peripheral pulses 2+ throughout GI: COMMON NORMALS: Normal to inspection, nondistended, normoactive bowel sounds present, Soft to palpation and non-tender PALPATION: Yes Soft to palpation : COMMON NORMALS: Yes no CVA tenderness BLADDER/KIDNEY EXAM: Yes no CVA tenderness Back/Pelvis: COMMON NORMALS: no CVA tenderness, thoracic and lumbar spine normal to inspection, no thoracic nor lumbar tenderness and thoraco-lumbar ROM normal Extremity: NARRATIVE EXTREMITY EXAM: With attention of the right lower extremity she has significant soft tissue edema from knee distally. She has significant soft tissue edema of the right foot with some fissuring of the skin on the distal dorsal surface. There is some proximal tenderness along the medial thigh. There is no joint tenderness or joint erythema. Does have skin erythema extending proximal to just distal to the knee joint with serpiginous borders. No evidence of mass, subcutaneous abscess etc. Neuro: COMMON NORMALS: patient oriented x3, moves all extremities, no focal motor deficits and no sensory deficits noted Psych: COMMON NORMALS: mental status grossly normal Skin: COMMON NORMALS: turgor normal NARRATIVE SKIN EXAM: Erythema of the skin of the right lower extremity GENERAL SKIN EXAM: turgor normal Course Consultations: Consultation #1: Discussed with the hospitalist on-call who agreed to admit the patient to observation. Time: 18:19 Vital Signs: Vital signs: Vital Signs Pulse Rate 103 H 02/23/22 17:05 Respiratory Rate 15 02/23/22 17:05 Blood Pressure 135/82 02/23/22 17:05 Pulse Oximetry 99 02/23/22 17:05 Oxygen Delivery Me thod 02/23/22 16:53 MDM - Extremity (Nontraumatic) Medical Decision Making Patient with a history of chronic right leg lymphedema for many years who presents to the emergency department a history of fever of 10 2-1 03 range, malaise and chills. Clinical examination reveals marked erythema of the right lower extremity with some ascending lymphangitis. Reassuringly her lactic acid is not in a worrisome level and her white blood count is also reassuring however she is tachycardic, history of fever, significant cellulitis therefore she is being loaded with 50 mg/kg of vancomycin and be placed in observation for repeat antibiotic dosing and reevaluation to her response to care. Lab Data I reviewed the patient's lab results. : 02/23/22 16:25 02/23/22 16:25 Laboratory Results WBC 7.3 10^3/uL (4.0-10.0) 02/23/22 16:25 RBC 4.34 10^6/uL (4.1-5.3) 02/23/22 16:25 Hgb 13.7 g/dL (11.5-15.3) 02/23/22 16:25 Hct 42.0 % (37.0-47.0) 02/23/22 16:25 MCV 96.8 fl (81-99) 02/23/22 16:25 MCH 31.6 pg (28.0-34.0) 02/23/22 16:25 MCHC 32.6 g/dL (30.0-36.0) 02/23/22 16:25 RDW 13.1 % (12.1-15.1) 02/23/22 16:25 Plt Count 220 10^3/cmm (130-400) 02/23/22 16:25 MPV 9.7 fL (7.4-10.4) 02/23/22 16:25 Neut % (Auto) 94.3 % 02/23/22 16:25 Lymph % (Auto) 2.5 % 02/23/22 16:25 [place] % (Auto) 2.3 % 02/23/22 16:25 Eos % (Auto) 0.0 % 02/23/22 16:25 Baso % (Auto) 0.1 % 02/23/22 16:25 Neut # (Auto) 6.87 10^3/uL (1.8-7.7) 02/23/22 16:25 Lymph # (Auto) 0.2 10^3/uL (0.8-4.8) L 02/23/22 16:25 [place] # (Auto) 0.2 10^3/uL (0.2-0.9) 02/23/22 16:25 Eos # (Auto) 0.0 10^3/uL (0.0-0.8) 02/23/22 16:25 Baso # (Auto) 0.0 10^3/uL (0.0-0.1) 02/23/22 16:25 Nucleated RBC % (auto) 0 % 02/23/22 16:25 Nucleated RBCs # 0.0 /100WBC 02/23/22 16:25 Sodium 140 mmol/L (136-145) 02/23/22 16:25 Potassium 3.5 mmol/L (3.5-5.1) 02/23/22 16:25 Chloride 105 mmol/L (98-107) 02/23/22 16:25 Carbon Dioxide 25 mmol/L (22-29) 02/23/22 16:25 Anion Gap 13.5 (5-19) 02/23/22 16:25 BUN 9 mg/dL (6-20) 02/23/22 16:25 Creatinine 0.6 mg/dL (0.5-0.9) 02/23/22 16:25 GFR Calculation 109.1 mL/min (90-130) 02/23/22 16:25 Glucose 100 mg/dL (65-115) 02/23/22 16:25 Calculated Osmolality 289 mOsm/kg (285-295) 02/23/22 16:25 Lactate 1.6 mmol/L (0.5-2.2) 02/23/22 16:25 Calcium 8.1 mg/dL (8.5-10.5) L 02/23/22 16:25 Total Bilirubin 0.6 mg/dL (0.15-1.2) 02/23/22 16:25 AST 5 U/L (0-32) 02/23/22 16:25 ALT 10 U/L (0-33) 02/23/22 16:25 Alkaline Phosphatase 43 U/L (35-105) 02/23/22 16:25 Total Protein 6.0 g/dL (6.6-8.7) L 02/23/22 16:25 Albumin 3.4 g/dL (3.5-5.2) L 02/23/22 16:25 Globulin 2.6 g/dL (1.3-4.6) 02/23/22 16:25 Discharge Plan Discharge Clinical Impression: Cellulitis of right leg, Chronic acquired lymphedema Condition: Stable Coding Level of Care Code ED Grades 1 Thru 6 Visiting Teacher for [facility] Fwd Exam Comprehensive
[2022-02-23] MEDS: sodium chloride 0.9% 1,000 ML 999 ML IV (16:35)
[2022-02-23 16:41] LABS: Basophils % 0.1 %; Hemoglobin 13.7 g/dL (11.5-15.3); Lymphocytes # 0.2 10^3/uL (0.8-4.8); Lymphocytes % 2.5 %; Mean Corpuscular HGB Conc 32.6 g/dL (30.0-36.0); Mean Corpuscular Hemoglobin 31.6 pg (28.0-34.0); Mean Corpuscular Volume 96.8 fl (81-99); Mean Platelet Volume 9.7 fL (7.4-10.4); Monocytes # 0.2 10^3/uL (0.2-0.9); Monocytes % 2.3 %; Neutrophils # 6.87 10^3/uL (1.8-7.7); Neutrophils % 94.3 %; Nucleated Red Blood Cells % 0 %; Platelet Count 220 10^3/cmm (130-400); Red Blood Count 4.34 10^6/uL (4.1-5.3); Red Cell Distribution Width 13.1 % (12.1-15.1); White Blood Count 7.3 10^3/uL (4.0-10.0)
[2022-02-23 16:59] LABS: Alanine Aminotransferase 10 U/L (0-33); Albumin Level 3.4 g/dL (3.5-5.2); Alkaline Phosphatase 43 U/L (35-105); Anion Gap 13.5 (5-19); Aspartate Amino Transferase 5 U/L (0-32); Blood Urea Nitrogen 9 mg/dL (6-20); Calcium 8.1 mg/dL (8.5-10.5); Carbon Dioxide 25 mmol/L (22-29); Chloride 105 mmol/L (98-107); Creatinine Clr Calc Pharmacy 151.9905; Globulin 2.6 g/dL (1.3-4.6); Glomerular Filtration Rate 109.1 mL/min (90-130); Glucose 100 mg/dL (65-115); Osmolality Calculated 289 mOsm/kg (285-295); Potassium 3.5 mmol/L (3.5-5.1); Sodium 140 mmol/L (136-145); Total Bilirubin 0.6 mg/dL (0.15-1.2)
[2022-02-23 17:00] LABS: Lactate (Lactic Acid level) 1.6 mmol/L (0.5-2.2)
--- NOTE | 2022-02-23 18:11 | P.HP_ITS ---
Providers/Chief Complaint Chief Complaint: pitting edema, vomiting History of Present Illness Lou Ponce is a 41 year old female with history of chronic lymphedema of right leg presented today with chief complaint of worsening of swelling, redness of right leg. Patient has not noticed any fever, chest pain, shortness of breath, nausea, vomiting or diarrhea however she is feeling lethargic and fatigued and stating that with stress her right leg swelling gets worse. No history of can cer or DVT in the past. She lives with her sister at home. She thinks she leads an active lifestyle. In the ER she has been diagnosed with cellulitis, no signs of sepsis I requested D-dimer rule out DVT She is sinus tachycardic Awake and alert I will give her clindamycin for toxin suppression along broad-spectrum antibiotics She is nondiabetic check A1c level Review of Systems Const: Reports: chills and body aches; Denies: fever(s) Eyes: Denies: change in vision ENMT: Denies: throat pain Card: Denies: chest pain Resp: Denies: dyspnea GI: Denies: abdominal pain : Denies: flank pain Musc: Reports: extremity pain and extremity swelling Skin/Breast: Reports: rash and skin tenderness Neuro: Denies: headache(s) Psych: Reports: anxiety Endo: Denies: polyuria Timmy/Lymph: Denies: easy bruising All/Imm: Denies: urticaria Medications/Allergies Allergies Allergy/AdvReac Type Severity Reaction Status Date / Time adhesive Allergy ALGY-Rash Verified 11/25/21 16:55 morphine Allergy ADR-Confusi Verified 11/25/21 16:55 on oxycodone Allergy ADR-Dizzine Verified 11/25/21 16:55 ss Penicillins Allergy ALGY-Difficulty Verified 11/25/21 16:55 Breathing PFSH Acute PFSH: Medical History Cellulitis Years back Smoking addiction Surgical History H/O: hysterectomy Family History Other No significant family history Social History Smoking and tobacco status: current some day smoker Alcohol intake: former Year of sobriety/quit date alcohol: 2021 Former alcohol use details: Reports no EtOH since September. Heavy prior to that Lives independently: Yes Household members: significant other Marital status: Vitals/I&O/Wt Last Vital Signs Pulse 103 H 02/23/22 17:05 Resp 15 02/23/22 17:05 BP 135/82 02/23/22 17:05 Pulse Ox 99 02/23/22 17:05 O2 Del Method 02/23/22 16:53 Weight last 48 hrs Weight 99.79 kg Physical Exam Narrative: Patient is awake and alert Nonfocal neuro exam Currently on room air Sinus tachycardia Clinically looks dehydrated Right lower extremity lymphedema with erythema extending from toes all the way up to mid purcell level active purulent drainage No rash signs of vascular compromise Pleasant and cooperative S1, S2 Currently on room air No audible stridor or wheezing Data : 02/23/22 16:25 02/23/22 16:25 Micro: Microbiology 02/23/22 16:45 Blood Culture - Preliminary Blood SPECIMEN COLLECTED 02/23/22 16:53 Blood Culture - Preliminary Blood SPECIMEN COLLECTED A&P Assessment and plan (1) Cellulitis of right leg: (2) Chronic acquired lymphedema: Plan Nonpurulent cellulitis of right leg Chronic lymphedema Skin breakdown noted I will give her clindamycin along vancomycin and Zosyn for toxin suppression She is full code Continue cardiac diet Check A1c level Check D-dimer to rule out DVT DVT prophylaxis Lovenox Patient lives with her sister Will update bilingual case manager to see if she will be covered for wound care clinic outpatient Attestations Medical Necessity Statement*: Anticipating discharge within 48 hours Time Spent in Patient Care: 35 Coding Level of Care Code Acute Lpn Medical Assistant for [facility] Vera Diagnoses Cellulitis of right leg L03.115 Chronic acquired lymphedema I89.0
[2022-02-23 18:55] LABS: Procalcitonin 1.52 ng/mL (0-0.5)
--- NOTE | 2022-02-23 19:35 | USCV_ITS ---
Lou Ponce Age: 41 Gender: F : 1980 Exam Date: 02/23/2022 20:50 Ordering Phys: Pietro Braga MD Technologist: RODNEY [place] [facility] [place]: 3+ pitting edema and erythema RIGHT calf. History of chronic cellulitis RLE per patient. No hx DVT per patient. HISTORY: 3+ pitting edema and erythema RIGHT calf. History of chronic cellulitis RLE per patient. No hx DVT per patient. PROCEDURES: Venous duplex imaging was performed in only the right lower extremity. The following venous structures were evaluated: common femoral vein, profunda vein, proximal portion of the greater saphenous vein, superficial femoral vein, and the popliteal vein. In addition, the posterior tibial and peroneal veins were evaluated. Serial compression, augmentation maneuvers, and spectral Doppler flow evaluation were performed, which were normal. On the right side, the common femoral, superficial femoral, profunda femoral, popliteal, posterior tibial, greater saphenous veins and the peroneal veins were identified and interrogated in the standard fashion. These veins were found to be easily compressible with spontaneous blood flow. No evidence of thrombus noted. CONCLUSIONS No evidence of right lower extremity DVT. Zheng Iniguez MD (Electronically Signed) Final Date: 24 February 2022 09:06 S
[2022-02-23 20:08] LABS: D Dimer 1.54 ug/mIFEU (0-0.59)
--- NOTE | 2022-02-23 20:11 | PC.NURSE ---
ADMIT NOTE Arrived to floor from ER at 1955 via wheelchair. Significant edema, redness and warmth of RLE. No drainage noted. Skin dry and crusty jesus manuel on the foot and between toes. Says leg is tender to touch and painful jesus manuel with wt bearing. Redness extends up to just below the knee. Marked with marker for monitoring. Temp 100.5 with VS check. Says has been up to 103 . RN at bedside completing admission assessment. SCD's ordered but only placed on the left leg. Not appropriate for R.
[2022-02-23 20:24] LABS: Thyroid Stimulating Hormone 0.74 uIU/mL (0.27-4.20)
[2022-02-23] MEDS: enoxaparin 100 mg/mL Syringe SUBCUT (21:55)
[2022-02-23] MEDS: sodium chloride 0.9% 1,000 ML 100 ML IV (21:55)
[2022-02-23] MEDS: clindamycin 900 MG/50 ML PREMIX 100 MG IV (21:55)
[2022-02-23 23:27] LABS: Estmated Average Glucose 88; Hemoglobin A1C 4.7 % (4.0-6.0)
[2022-02-23] MEDS: acetaminophen 500 mg Tablet PO (23:43)
[2022-02-24] VITALS (12 sets, daily range): BP systolic 108–127; BP diastolic 67–84; PULSE 93–115; RESP 15–18; TEMP 36.8–39.3; O2SAT 91–97
[2022-02-24] MEDS: aztreonam 2,000 MG in sodium chloride 0.9% (plus) 100 ML 200 MG IV ×2 (01:18→13:43)
[2022-02-24 04:07] LABS: Basophils % 0.3 %; Hematocrit 39.5 % (37.0-47.0); Hemoglobin 12.2 g/dL (11.5-15.3); Lymphocytes # 0.1 10^3/uL (0.8-4.8); Lymphocytes % 1.5 %; Mean Corpuscular HGB Conc 30.9 g/dL (30.0-36.0); Mean Corpuscular Hemoglobin 31.7 pg (28.0-34.0); Mean Platelet Volume 9.3 fL (7.4-10.4); Monocytes # 0.2 10^3/uL (0.2-0.9); Monocytes % 1.7 %; Neutrophils # 8.57 10^3/uL (1.8-7.7); Neutrophils % 96.1 %; Nucleated Red Blood Cells % 0 %; Platelet Count 206 10^3/cmm (130-400); Red Blood Count 3.85 10^6/uL (4.1-5.3); Red Cell Distribution Width 13.5 % (12.1-15.1); White Blood Count 8.9 10^3/uL (4.0-10.0)
[2022-02-24] MEDS: vancomycin 1,500 MG/300 ML PIGGYBACK 200 MG IV (04:08)
[2022-02-24] MEDS: acetaminophen 500 mg Tablet PO ×3 (04:08→16:32)
[2022-02-24 04:12] LABS: Mean Corpuscular Volume 102.6 fl (81-99)
[2022-02-24 04:28] LABS: Anion Gap 13.7 (5-19); Blood Urea Nitrogen 9 mg/dL (6-20); C Reactive Protein 77.5 mg/L (0.0-4.9); Calcium 8.2 mg/dL (8.5-10.5); Carbon Dioxide 25 mmol/L (22-29); Chloride 101 mmol/L (98-107); Glomerular Filtration Rate 78.3 mL/min (90-130); Glucose 105 mg/dL (65-115); Magnesium 1.4 mg/dL (1.7-2.3); Osmolality Calculated 281 mOsm/kg (285-295); Potassium 3.7 mmol/L (3.5-5.1); Sodium 136 mmol/L (136-145)
--- NOTE | 2022-02-24 08:08 | CT_ITS ---
WS: [id number] CTA OF THE CHEST WITH PULMONARY EMBOLISM PROTOCOL TECHNIQUE: High-resolution contrast enhanced CTA of the chest with coronal and sagittal reformatted i mages with pulmonary embolism protocol. MIP images are also reviewed. CLINICAL INFORMATION: sinus tachycardia COMPARISON: None. DLP: 407.[address] scans at [facility] use at least one of these dose optimization techniques: automated e xposure control; mA and/or kV adjustment per patient size (includes targeted exams where dose is matc hed to clinical indication); or iterative reconstruction. FINDINGS: Proximal main pulmonary arteries are normal. Normal segmental pulmonary arteries. Distal most subsegm ental pulmonary arteries not well evaluated due to body habitus. No evidence of pulmonary embolus. Normal caliber thoracic aorta. Normal descending thoracic aorta.Adrenal glands are normal. Hepatomega ly. Small esophageal hiatal hernia. Celiac and SMA are patent in the upper abdomen. Lungs are well aerated. No acute pulmonary infiltrates. Slight bibasilar atelectasis. No focal pneumo kilo or pleural fluid. Cardiomegaly. No mediastinal or hilar lymphadenopathy. Prominent axillary lymph nodes RIGHT greater than LEFT nonspecific but may be reactive. Mild diffuse body wall anasarca. Mult inodular thyroid with nodular LEFT thyroid lobe. Mild thoracic kyphosis. Hypertrophic changes thoraci c spine. CT/CT angio chest PE protcl [id number] IMPRESSION: Some images are limited due to body habitus. 1. No evidence of pulmonary embolus. 2. Normal caliber thoracic aorta. 3. Lungs well aerated. Slight atelectasis in the lung bases. 4. Prominent RIGHT greater than LEFT axillary lymph nodes nonspecific but may be reactive. No mediastinal or hilar lymphadenopathy. 5. No other suspicious findings.
[2022-02-24] MEDS: sennosides-docusate Tablet 1 TAB PO (08:14)
[2022-02-24] MEDS: enoxaparin 100 mg/mL Syringe SUBCUT (08:14)
--- NOTE | 2022-02-24 08:23 | PC.PHAR ---
pt states she takes no rx or otc medications
[2022-02-24] MEDS: iohexol 350 mg/mL 500 mL Btl (per mL) IV (08:37)
--- NOTE | 2022-02-24 10:01 | P.PN_ITS ---
Subjective Subjective: No leukocytosis no endorgan damage Febrile events overnight Rule out PE and DVT requested venous Doppler and CTA chest D-dimer 1.5 Patient is awake and alert No overnight events other than febrile episodes Vitals/I&O/Wt Last Vital Signs Temp 100.3 F H 02/24/22 07:43 Pulse 97 02/24/22 08:58 Resp 18 02/24/22 08:58 BP 127/84 02/24/22 07:43 Pulse Ox 96 02/24/22 08:58 O2 Del Method 02/24/22 08:58 02/23/22 02/24/22 02/24/22 22:59 06:59 14:59 Intake Total 50 / 50 2583.333 / 2633.333 300 / 300 Output Total 200 / 200 200 / 400 Balance -150 / -150 2383.333 / 2233.333 300 / 300 Weight last 48 hrs Weight 99.79 kg Physical Exam Narrative: Patient is awake and alert Right leg cellulitis area has been marked No signs of purulence Red erythematous nonpurulent nontender to touch Lymphedema Awake and alert Currently on room air Pleasant cooperative Nonfocal neuro exam Data : 02/24/22 03:24 02/24/22 03:24 Micro: Microbiology 02/23/22 16:45 Blood Culture - Preliminary Blood SPECIMEN COLLECTED 02/23/22 16:53 Blood Culture - Preliminary Blood SPECIMEN COLLECTED A&P Assessment and plan (1) Chronic acquired lymphedema: (2) Cellulitis of right leg: Plan Febrile events No leukocytosis or endorgan damage Patient is not septic D-dimer 1.5 No signs of PE or DVT Continue therapeutic Lovenox for now In case her fever does not subside by tomorrow I will obtain CT scan of her right leg to rule out abscess Continue broad-spectrum antibiotics including clindamycin for toxin suppression Patient lives with her sister She plans to go back to her sisters place A1c is 4.7 Lactic acid is normal Hypomagnesemia noted will be repleted Blood cultures obtained Attestations Medical Necessity Statement*: Continue medical management Time Spent in Patient Care: 30 Coding Level of Care Code Acute Hotel Operations Manager for [facility] Fwd Diagnoses Chronic acquired lymphedema I89.0 Cellulitis of right leg L03.115
[2022-02-24] MEDS: vancomycin 1,500 MG/300 ML PIGGYBACK 150 MG IV ×2 (10:29→17:27)
[2022-02-24] MEDS: clindamycin 900 MG/50 ML PREMIX 100 MG IV (11:44)
[2022-02-24] MEDS: sodium chloride 0.9% 1,000 ML 100 ML IV (16:28)
--- NOTE | 2022-02-24 19:27 | PC.NURSE ---
BEDSIDE REPORT TAKEN FROM NICHOLAS FARRELL. PATIENT A&O AND VSS. PATIENT RESTING IN BED, NO FURTHER NEEDS AT THIS TIME.
--- NOTE | 2022-02-24 22:43 | PC.NURSE ---
PATIENT RESTING IN BED. NO FURTHER NEEDS AT THIS TIME.
[2022-02-25] VITALS (14 sets, daily range): BP systolic 107–143; BP diastolic 67–89; PULSE 71–122; RESP 15–19; TEMP 36.9–39.3; O2SAT 95–98
[2022-02-25] MEDS: acetaminophen 500 mg Tablet PO (00:12)
--- NOTE | 2022-02-25 00:45 | PC.NURSE ---
PATIENT'S HR STEADILY INCREASING FROM 90s TO 130s. PATIENT RUNNING TEMPERATURE, TYLENOL ADMINISTERED. THIS NURSE CALLED DR SALGADO REGARDING PATIENT'S VITAL SIGNS. DR SALGADO INSTRUCTED NURSE TO WAIT FOR TYLENOL TO TAKE AFFECT AND TO MONITOR PATIENT.
[2022-02-25] MEDS: aztreonam 2,000 MG in sodium chloride 0.9% (plus) 100 ML 200 MG IV ×2 (01:23→13:45)
[2022-02-25] MEDS: vancomycin 1,500 MG/300 ML PIGGYBACK 200 MG IV ×3 (02:08→18:56)
--- NOTE | 2022-02-25 04:03 | PC.NURSE ---
PATIENT'S HR HAS GRADUALLY COME DOWN AND IS MAINTAINED IN THE 100-110s. PATIENT RESTING IN BED. NO FURTHER NEEDS AT THIS TIME.
[2022-02-25 05:04] LABS: Basophils % 0.2 %; Eosinophils # 0.1 10^3/uL (0.0-0.8); Hematocrit 37.6 % (37.0-47.0); Hemoglobin 11.8 g/dL (11.5-15.3); Lymphocytes # 0.4 10^3/uL (0.8-4.8); Lymphocytes % 4.8 %; Mean Corpuscular HGB Conc 31.4 g/dL (30.0-36.0); Mean Corpuscular Hemoglobin 31.5 pg (28.0-34.0); Mean Corpuscular Volume 100.3 fl (81-99); Mean Platelet Volume 9.5 fL (7.4-10.4); Monocytes # 0.2 10^3/uL (0.2-0.9); Monocytes % 2.4 %; Neutrophils # 7.56 10^3/uL (1.8-7.7); Neutrophils % 90.4 %; Nucleated Red Blood Cells % 0 %; Platelet Count 195 10^3/cmm (130-400); Red Blood Count 3.75 10^6/uL (4.1-5.3); Red Cell Distribution Width 13.6 % (12.1-15.1); White Blood Count 8.4 10^3/uL (4.0-10.0)
[2022-02-25 06:07] LABS: Anion Gap 14.5 (5-19); Blood Urea Nitrogen 10 mg/dL (6-20); Calcium 8.4 mg/dL (8.5-10.5); Carbon Dioxide 19 mmol/L (22-29); Chloride 102 mmol/L (98-107); Creatinine Clr Calc Pharmacy 151.9905; Glomerular Filtration Rate 109.1 mL/min (90-130); Glucose 84 mg/dL (65-115); Osmolality Calculated 272 mOsm/kg (285-295); Potassium 3.5 mmol/L (3.5-5.1); Sodium 132 mmol/L (136-145)
--- NOTE | 2022-02-25 07:09 | CT_ITS ---
WS: [id number] TECHNIQUE: with coronal and sagittal reformatted images. CLINICAL INFORMATION: cellulitis COMPARISON: None. DLP: 596.[address] scans at [facility] use at least one of these dose optimization techniques: automated e xposure control; mA and/or kV adjustment per patient size (includes targeted exams where dose is matc hed to clinical indication); or iterative reconstruction. FINDINGS: Normal anatomic alignment. No acute fractures. Diffuse soft tissue edema lower leg extending to the a nkle suspicious for cellulitis. Recommend correlation for infection. No evidence of drainable abscess or fluid collection. No evidence of bony destruction to indicate osteomyelitis. Vascular calcification. Mild tricompartmental arthritis involving the knee. CT/CT lower leg RT w con [id number] IMPRESSION: 1. Diffuse soft tissue edema lower leg and ankle specialist for cellulitis. 2. No evidence of drainable abscess or fluid collection. 3. No evidence of osteomyelitis. 4. Mild tricompartmental arthritis RIGHT knee
[2022-02-25] MEDS: iohexol 350 mg/mL 500 mL Btl (per mL) IV (08:29)
--- NOTE | 2022-02-25 09:02 | P.PN_ITS ---
Subjective Subjective: Persistent febrile events requested CT scan of the right leg with contrast to rule out abscess no leukocytosis, Vitals/I&O/Wt Last Vital Signs Temp 99.0 F 02/25/22 08:25 Pulse 113 H 02/25/22 08:57 Resp 18 02/25/22 08:57 BP 130/74 02/25/22 08:25 Pulse Ox 96 02/25/22 08:57 O2 Del Method 02/25/22 08:57 02/24/22 02/25/22 02/25/22 22:59 06:59 14:59 Intake Total 240 / 990 2140 / 3130 Output Total 900 / 900 800 / 1700 Balance -660 / 90 1340 / 1430 Weight last 48 hrs Weight 99.79 kg Physical Exam Narrative: Patient is awake and alert Right leg erythema noted Chronic lymphedema Awake and alert Currently on room air S1, S2 sinus tachycardia Euvolemic No audible stridor or wheezing Data : 02/25/22 04:34 02/25/22 04:34 Micro: Microbiology 02/23/22 16:45 Blood Culture - Preliminary Blood NEGATIVE TO DATE 02/23/22 16:53 Blood Culture - Preliminary Blood NEGATIVE TO DATE A&P Assessment and plan (1) Chronic acquired lymphedema: (2) Cellulitis of right leg: Plan Nonpurulent cellulitis Currently patient is on broad-spectrum antibiotics I did give her clindamycin for toxin suppression Persistent febrile events noted I have requested CT scan of right leg to rule out abscess formation She does not meet sepsis criteria without abnormality damage however she does have febrile events with tachycardia, no leukocytosis, D-dimer was high Considering high BMI I have kept her on 30 mg of Lovenox every 12 hours Continue vancomycin and aztreonam she got 2 doses of clindamycin Full code Continue cardiac diet No signs of bacterial Previously wound culture which showed strep pyogenes and MRSA Attestations Medical Necessity Statement*: Continue medical management Time Spent in Patient Care: 30 Coding Level of Care Code Acute Or First Assist Registered Nurse for [facility] Fwd Diagnoses Chronic acquired lymphedema I89.0 Cellulitis of right leg L03.115
[2022-02-25] MEDS: sennosides-docusate Tablet 1 TAB PO (09:50)
[2022-02-25] MEDS: lactated ringers 500 ML 999 ML IV (10:30)
[2022-02-25] MEDS: clindamycin 600 MG/50 ML PREMIX 100 MG IV ×2 (10:47→17:43)
--- NOTE | 2022-02-25 10:47 | PC.CHAP ---
Pastoral Care Encounter/Spiritual Assessment Type of Contact [] Declined peanut roaster visit [] Patient/Family/Request visit [] Outpatient visit [] Follow-up visit [] Physician referral [] Code/Alert [x] Routine visit [] Staff referral [] Actively dying [] Patient sleeping [] Family support [] [] Out of room [] Palliative care [] [x] Receiving care in room [] Pre-surgical visit [] Trauma [] Long length of stay [] ICU visit [] Other: Relational/Emotional Strength [x] Patient feels connected with others/family/visitors/staff [] Distress [] Loneliness/isolation [] Abandonment Spirituality of Patient [x] Person of Isabelle [] Attends Confucianist of their Isabelle [x] Believes in Prayer [] Reads Bible or Lutheran materials [] There are Spiritual issues to be addressed Trip Rider Interventions [x] Prayer [x] Active listening [x] Non-anxious presence [x] Spiritual/emotional support [] Crisis/trauma care [x] Spiritual counseling [] Bereavement support [] Provided bereavement packet [] Provided Bible/devotional materials [] Provided toy/stuffed animal, coloring book to patient or family member [] Provided Communion [] Anointing/Vining [] Salvation [x] Completed spiritual assessment [] Other: Impact on Illness or Injury [] Angry [] Fearful [] Anxious [] Often cries [] Exhaustion [] Unable to work [] Unable to attend restorationist [] Unable to walk/stand [] Unable to read [] Unable to drive [] Unable to eat/drink [] Unable to sleep [] Unable to be with family [] Patient intubated [] Other: Summary pumonia on byodics well go home at some point has a good attitude Time spent with patient 10 mins
[2022-02-25] MEDS: sodium chloride 0.9% 1,000 ML 100 ML IV (11:40)
[2022-02-25 18:03] LABS: Vancomycin Trough 12.7 ug/mL (10-15)
[2022-02-25] MEDS: enoxaparin 30 mg/0.3 mL Syringe SUBCUT (20:00)
[2022-02-26] VITALS (8 sets, daily range): BP systolic 124–137; BP diastolic 69–88; PULSE 73–92; RESP 16–18; TEMP 36.5–37.5; O2SAT 95–100
[2022-02-26] MEDS: sodium chloride 0.9% 1,000 ML 100 ML IV (00:47)
[2022-02-26] MEDS: aztreonam 2,000 MG in sodium chloride 0.9% (plus) 100 ML 200 MG IV ×2 (00:48→14:30)
[2022-02-26] MEDS: clindamycin 600 MG/50 ML PREMIX 100 MG IV ×3 (01:34→16:32)
[2022-02-26] MEDS: vancomycin 1,500 MG/300 ML PIGGYBACK 200 MG IV ×3 (01:37→17:43)
[2022-02-26 05:09] LABS: Basophils % 0.2 %; Eosinophils # 0.1 10^3/uL (0.0-0.8); Eosinophils % 2.2 %; Hematocrit 32.3 % (37.0-47.0); Hemoglobin 10.2 g/dL (11.5-15.3); Lymphocytes # 0.9 10^3/uL (0.8-4.8); Lymphocytes % 14.9 %; Mean Corpuscular HGB Conc 31.6 g/dL (30.0-36.0); Mean Corpuscular Hemoglobin 31.5 pg (28.0-34.0); Mean Corpuscular Volume 99.7 fl (81-99); Mean Platelet Volume 9.7 fL (7.4-10.4); Monocytes # 0.3 10^3/uL (0.2-0.9); Neutrophils # 4.87 10^3/uL (1.8-7.7); Neutrophils % 78.2 %; Nucleated Red Blood Cells % 0 %; Platelet Count 174 10^3/cmm (130-400); Red Blood Count 3.24 10^6/uL (4.1-5.3); Red Cell Distribution Width 13.6 % (12.1-15.1); White Blood Count 6.2 10^3/uL (4.0-10.0)
[2022-02-26 05:50] LABS: Lactate (Lactic Acid level) 0.7 mmol/L (0.5-2.2)
[2022-02-26 05:53] LABS: Anion Gap 12.8 (5-19); Blood Urea Nitrogen 6 mg/dL (6-20); Carbon Dioxide 21 mmol/L (22-29); Chloride 105 mmol/L (98-107); Glomerular Filtration Rate 174.2 mL/min (90-130); Glucose 84 mg/dL (65-115); Osmolality Calculated 277 mOsm/kg (285-295); Potassium 3.8 mmol/L (3.5-5.1); Sodium 135 mmol/L (136-145)
[2022-02-26] MEDS: sennosides-docusate Tablet 1 TAB PO (08:34)
[2022-02-26] MEDS: enoxaparin 30 mg/0.3 mL Syringe SUBCUT (08:34)
--- NOTE | 2022-02-26 09:05 | PM.PN ---
Subjective Subjective: Patient is endorsing feeling better Low-grade fever noted Leukocytosis 6.2 No sign of abscess or osteomyelitis Continue IV antibiotics Vitals/I&O/Wt Last Vital Signs Temp 97.7 F 02/26/22 08:00 Pulse 85 02/26/22 08:00 Resp 16 02/26/22 08:00 BP 124/77 02/26/22 08:00 Pulse Ox 97 02/26/22 08:00 O2 Del Method 02/26/22 08:00 02/25/22 02/26/22 02/26/22 22:59 06:59 14:59 Intake Total 1810 / 2520 1450 / 3970 Output Total 450 / 2320 1800 / 4120 Balance 1360 / 200 -350 / -150 Physical Exam Narrative: Patient is lying supine Awake and alert Pleasant and cooperative Currently on room air Hemodynamically stable Lymphedema Abdomen soft Currently doing well on room air S1, S2 erythema of right leg is improved Data : 02/26/22 04:19 02/26/22 04:19 A&P Assessment and plan (1) Chronic acquired lymphedema: (2) Cellulitis of right leg: Plan Nonpurulent cellulitis of right leg Underlying chronic lymphedema Outpatient she will need wound care follow-up because of her insurance she cannot get home health services I have added clindamycin yesterday which seem to improve her febrile episodes If she keeps doing well clinically she might be able to go home tomorrow No signs of sepsis No signs of osteomyelitis or abscess She be able to go home likely over the weekend Cardiac diet Blood cultures negative so far I will discontinue her IV fluids Continue vancomycin, clindamycin and aztreonam Attestations Medical Necessity Statement*: Discharge over the weekend Time Spent in Patient Care: 35 Coding Level of Care Code Acute Molding [employer]aste[employer] for [facility] Fwd Diagnoses Chronic acquired lymphedema I89.0 Cellulitis of right leg L03.115
[2022-02-27 00:10] VITALS: BP 138/88; PULSE 75; RESP 16; TEMP 37.1; O2SAT 99
[2022-02-27] MEDS: aztreonam 2,000 MG in sodium chloride 0.9% (plus) 100 ML 200 MG IV (00:35)
[2022-02-27] MEDS: clindamycin 600 MG/50 ML PREMIX 100 MG IV ×2 (00:36→08:24)
[2022-02-27] MEDS: vancomycin 1,500 MG/300 ML PIGGYBACK 200 MG IV ×2 (01:54→09:50)
[2022-02-27 04:37] VITALS: BP 143/78; PULSE 96; RESP 16; TEMP 36.8; O2SAT 94
[2022-02-27 05:12] LABS: Blood Urea Nitrogen 5 mg/dL (6-20); C Reactive Protein 74.1 mg/L (0.0-4.9); Calcium 8.7 mg/dL (8.5-10.5); Carbon Dioxide 24 mmol/L (22-29); Chloride 101 mmol/L (98-107); Glomerular Filtration Rate 134.7 mL/min (90-130); Glucose 108 mg/dL (65-115); Osmolality Calculated 274 mOsm/kg (285-295); Sodium 133 mmol/L (136-145)
[2022-02-27 05:13] LABS: Anion Gap 11.6 (5-19); Potassium 3.6 mmol/L (3.5-5.1)
[2022-02-27 05:20] VITALS: PULSE 90
[2022-02-27 05:31] LABS: Basophils % 0.2 %; Eosinophils # 0.2 10^3/uL (0.0-0.8); Eosinophils % 3.9 %; Hematocrit 33.5 % (37.0-47.0); Hemoglobin 10.8 g/dL (11.5-15.3); Lymphocytes % 22.7 %; Mean Corpuscular HGB Conc 32.2 g/dL (30.0-36.0); Mean Corpuscular Hemoglobin 30.9 pg (28.0-34.0); Mean Platelet Volume 9.7 fL (7.4-10.4); Monocytes # 0.3 10^3/uL (0.2-0.9); Monocytes % 6.5 %; Neutrophils # 3.05 10^3/uL (1.8-7.7); Neutrophils % 66.5 %; Nucleated Red Blood Cells % 0 %; Platelet Count 207 10^3/cmm (130-400); Red Blood Count 3.49 10^6/uL (4.1-5.3); Red Cell Distribution Width 13.8 % (12.1-15.1); White Blood Count 4.6 10^3/uL (4.0-10.0)
[2022-02-27 07:38] VITALS: BP 131/81; PULSE 92; RESP 18; TEMP 36.6; O2SAT 93
[2022-02-27 07:55] VITALS: PULSE 87; RESP 16; O2SAT 99
[2022-02-27] MEDS: sennosides-docusate Tablet 1 TAB PO (08:24)
[2022-02-27] MEDS: enoxaparin 40 mg/0.4 mL Syringe SUBCUT (08:24)
--- NOTE | 2022-02-27 09:50 | PM.DCS ---
Discharge Providers Date of Admission: 02/25/22 07:10 Date of Discharge: February 27, 2022 Attending Provider at Admission: Pietro Braga MD Attending Provider at Discharge: Hoang Perry MD Diagnoses at Discharge Discharge Diagnosis (1) Chronic acquired lymphedema: Status: Acute (2) Cellulitis of right leg: Status: Acute Reason for Visit Reason for Visit: pitting edema, vomiting Hospital Course Hospital Course 41 year old female with history of chronic lymphedema of right leg presented with chief complaint of worsening of swelling, redness of right leg.She was admitted for the management of right lower extremity cellulitis, she was kept on broad-spectrum antibiotics during the hospital stay, to which she responded well Right lower extremity CT scan was done:Diffuse soft tissue edema lower leg and ankle specialist for cellulitis.?No evidence of drainable abscess or fluid collection. No evidence of osteomyelitis. Blood cultures are negative. She also had an episode of fever during the hospital stay, at the time of discharge she was afebrile for more than 48 hours, No clinical suspicion for sepsis.She was discharged on p.o. Cipro as well as clindamycin for additional 7 days. Patient overall responded well to above medical management, she is being discharged in stable condition to home. She will follow with her primary care physician as outpatient. Physical Exam Const: COMMON NORMALS: patient oriented x3 Resp: COMMON NORMALS: clear to auscultation bilaterally AUSCULTATION: clear to auscultation bilaterally Cardio: COMMON NORMALS: regular rate, regular rhythm, S1 normal heart sound present, S2 normal heart sound present, No gallops present (Cardio), No murmurs present (Cardio), No rub (Cardio) and Peripheral pulses 2+ throughout RATE: regular rate RHYTHM: regular rhythm HEART SOUNDS: S1 normal heart sound present and S2 normal heart sound present PERIPHERAL PULSES: Peripheral pulses 2+ throughout GI: COMMON NORMALS: Normal to inspection, nondistended, normoactive bowel sounds present, Soft to palpation, non-tender, No hepatosplenomegaly present and no masses AUSCULTATION: Yes normoactive bowel sounds PALPATION: Yes Soft to palpation and Yes No hepatosplenomegaly present RECTAL EXAM: deferred Extremity: COMMON NORMALS: no clubbing, cyanosis or edema and no pedal edema NARRATIVE EXTREMITY EXAM: Right lower extremity redness improving, chronic lymphedema Neuro: COMMON NORMALS: patient oriented x3 Discharge Data Studies Completed and Pending Completed Studies During Hospitalization Category Date Time Status CT lower leg RT w con [id number] Stat Cat Scan 02/25/22 07:09 Completed CTA PE [CT angio chest PE protcl [id number]] Routine Cat Scan 02/24/22 08:08 Completed US venous duplex lower extremity RT [CV venous duplex Ultrasound 02/23/22 19:35 [place] [id number]] Routine Pending at discharge Category Date Time Status Blood Culture Stat Lab 02/23/22 16:45 Results Radiology Impressions Chest CTA 02/24/22 08:08 IMPRESSION: Some images are limited due to body habitus. 1. No evidence of pulmonary embolus. 2. Normal caliber thoracic aorta. 3. Lungs well aerated. Slight atelectasis in the lung bases. 4. Prominent RIGHT greater than LEFT axillary lymph nodes nonspecific but may be reactive. No mediastinal or hilar lymphadenopathy. 5. No other suspicious findings. Lower Extremity CT 02/25/22 07:09 IMPRESSION: 1. Diffuse soft tissue edema lower leg and ankle specialist for cellulitis. 2. No evidence of drainable abscess or fluid collection. 3. No evidence of osteomyelitis. 4. Mild tricompartmental arthritis RIGHT knee Laboratory Results WBC 4.6 10^3/uL (4.0-10.0) 02/27/22 05:10 Corrected WBC Cancelled 02/27/22 04:18 RBC 3.49 10^6/uL (4.1-5.3) L 02/27/22 05:10 Hgb 10.8 g/dL (11.5-15.3) L 02/27/22 05:10 Hct 33.5 % (37.0-47.0) L 02/27/22 05:10 MCV 96.0 fl (81-99) 02/27/22 05:10 MCH 30.9 pg (28.0-34.0) 02/27/22 05:10 MCHC 32.2 g/dL (30.0-36.0) 02/27/22 05:10 RDW 13.8 % (12.1-15.1) 02/27/22 05:10 Plt Count 207 10^3/cmm (130-400) 02/27/22 05:10 MPV 9.7 fL (7.4-10.4) 02/27/22 05:10 Gran % Cancelled 02/27/22 04:18 Neut % (Auto) 66.5 % 02/27/22 05:10 Lymph % (Auto) 22.7 % 02/27/22 05:10 Tompkins % (Auto) 6.5 % 02/27/22 05:10 Eos % (Auto) 3.9 % 02/27/22 05:10 Baso % (Auto) 0.2 % 02/27/22 05:10 Neut # (Auto) 3.05 10^3/uL (1.8-7.7) 02/27/22 05:10 Lymph # (Auto) 1.0 10^3/uL (0.8-4.8) 02/27/22 05:10 Tompkins # (Auto) 0.3 10^3/uL (0.2-0.9) 02/27/22 05:10 Eos # (Auto) 0.2 10^3/uL (0.0-0.8) 02/27/22 05:10 Baso # (Auto) 0.0 10^3/uL (0.0-0.1) 02/27/22 05:10 Absolute Gran (auto) Cancelled 02/27/22 04:18 Nucleated RBC % (auto) 0 % 02/27/22 05:10 Nucleated RBCs # 0.0 /100WBC 02/27/22 05:10 D-Dimer 1.54 ug/mIFEU (0-0.59) H 02/23/22 16:57 Sodium 133 mmol/L (136-145) L 02/27/22 04:18 Potassium 3.6 mmol/L (3.5-5.1) 02/27/22 04:18 Chloride 101 mmol/L (98-107) 02/27/22 04:18 Carbon Dioxide 24 mmol/L (22-29) 02/27/22 04:18 Anion Gap 11.6 (5-19) 02/27/22 04:18 BUN 5 mg/dL (6-20) L 02/27/22 04:18 Creatinine 0.5 mg/dL (0.5-0.9) 02/27/22 04:18 GFR Calculation 134.7 mL/min (90-130) H 02/27/22 04:18 Glucose 108 mg/dL (65-115) 02/27/22 04:18 Estimat Average Glucose 88 02/23/22 16:57 Hemoglobin A1c 4.7 % (4.0-6.0) 02/23/22 16:57 Calculated Osmolality 274 mOsm/kg (285-295) L 02/27/22 04:18 Lactate 0.7 mmol/L (0.5-2.2) 02/26/22 04:19 Calcium 8.7 mg/dL (8.5-10.5) 02/27/22 04:18 Magnesium 1.4 mg/dL (1.7-2.3) L 02/24/22 03:24 Total Bilirubin 0.6 mg/dL (0.15-1.2) 02/23/22 16:25 AST 5 U/L (0-32) 02/23/22 16:25 ALT 10 U/L (0-33) 02/23/22 16:25 Alkaline Phosphatase 43 U/L (35-105) 02/23/22 16:25 C-Reactive Protein 74.1 mg/L (0.0-4.9) H 02/27/22 04:18 Total Protein 6.0 g/dL (6.6-8.7) L 02/23/22 16:25 Albumin 3.4 g/dL (3.5-5.2) L 02/23/22 16:25 Globulin 2.6 g/dL (1.3-4.6) 02/23/22 16:25 Procalcitonin 1.52 ng/mL (0-0.5) H 02/23/22 16:26 TSH 0.74 uIU/mL (0.27-4.20) 02/23/22 16:57 Vancomycin Trough 12.7 ug/mL (10-15) 02/25/22 17:25 Vitals Last Vital Signs Temp 97.9 F 02/27/22 07:38 Pulse 87 02/27/22 07:55 Resp 16 02/27/22 07:55 BP 131/81 02/27/22 07:38 Pulse Ox 99 02/27/22 07:55 O2 Del Method 02/27/22 07:55 Discharge Plan Discharge Patient Disposition: Home Condition: Stable Prescriptions: New clindamycin HCl 300 mg capsule 300 mg PO Q8H 7 Days Qty: 21 0RF ciprofloxacin HCl 500 mg tablet 500 mg PO BID 7 Days Qty: 14 0RF Discharge Orders: Discharge Order (Routine); Ordered 02/27/22 Ordered By: Hoang Perry Referrals: Robe Smith DO [Referring] - (Please call Tuesday to schedule a follow up appointment.) [facility], [Staff Physician] - 1 week (Please call [facility] on Tuesday to schedule a follow up appointment.) Patient Instructions: Ciprofloxacin (By mouth), Clindamycin (By mouth), Cellulitis (ED) Discharge Attestations Time Spent in Discharge Care*: less than 30 min Quality Metrics Clinical Quality Measures [ No reported AMI, CVA or VTE this stay] Coding Level of Care Code Acute Chg FW DC note Diagnoses Chronic acquired lymphedema I89.0 Cellulitis of right leg L03.115
[2022-02-27 11:53] VITALS: BP 141/76; PULSE 76; RESP 18; TEMP 36.6; O2SAT 95
== END 2022-02-27 13:18 | disposition home or self-care (01) ==
LOC: ER 17:11 → MEDSURG 18:29
PROVIDERS: Admitting Provider Internal Medicine; Emergency Provider Emergency Medicine; Visit Provider Internal Medicine
DX: I89.0 Lymphedema, not elsewhere classified (principal); L03.115 Cellulitis of right lower limb; F17.210 Nicotine dependence, cigarettes, uncomplicated
CPT/HCPCS: 36415; 71275; 73701; 80048; 80053; 80202; 83036; 83605; 83735; 84145; 84443; 85025; 85378; 86140; 87040; 93971; 96365; 96372; 99285; G0378; J1650; J3370; J3490; J7030; J7050; J7120; Q9967

== ENCOUNTER 2022-04-05 13:01 | Outpatient (RCR) | payer MEDICAID, SELFPAY | END 2022-04-24 23:59 | disposition home or self-care (01) | LOC: SPT 13:01 | PROVIDERS: PCP Family Medicine; Visit Provider Nurse Practitioner Family | DX: I89.0 Lymphedema, not elsewhere classified (principal) | CPT/HCPCS: 97140; 97161 ==